=== PATIENT | female | born 1975 | race African-American/Black ===

== ENCOUNTER 2019-07-24 17:59 | Inpatient (IN) | payer OTHER ==
[2019-07-24 19:07] VITALS: BMI 29.8
--- NOTE | 2019-07-24 21:50 | HP ---
COWS - Scale Resting Pulse: 0= [place] 80 or Below Sweatin=Flushed/Facial Moisture Restless Observation: 1= Difficult to Sit Still Pupil Size: 1= Pupils >than Normal Bone or Joint Aches: 2= Severe Diffuse Aches Runny Nose/ Eye Tearin= Runny Nose/Eyes GI Upset > 30mins: 1= Stomach Cramp Tremor Observation: 2= Slight Tremor Visible Yawning Observation: 1= 1-2x During Session Anxiety or Irritability: 1=Feels Anxious/Irritable Goose Flesh Skin: 0=Smooth Skin COWS Score: 13 CIWA Score Nausea/Vomitin Muscle Tremors: 3 Anxiety: 2 Agitation: 2 Paroxysmal Sweats: 2 Orientation: 0-Oriented Tacttile Disturbances: 2-Mild Itch/Numbness/Burn Auditory Disturbances: 2-Mild Harshness/Frighten Visual Disturbances: 2-Mild Sensitivity Headache: 1-Very Mild CIWA-Ar Total Score: 18 - Admission Criteria OASAS Guidelines: Admission for Medically Managed Detox: Requires at least one of the followin. CIWA greater than 12 2. Seizures within the past 24 hours 3. Delirium tremens within the past 24 hours 4. Hallucinations within the past 24 hours 5. Acute intervention needed for co occurring medical disorder 6. Acute intervention needed for co occurring psychiatric disorder 7. Severe withdrawal that cannot be handled at a lower level of care (continued vomiting, continued diarrhea, abnormal vital signs) requiring intravenous medication and/or fluids 8. Admitting History and Physical - Past Medical History ...LMP: 04/24/18 (Unsure of date) - Smoking History Smoking history: Current every day smoker Have you smoked in the past 12 months: Yes Aproximately how many cigarettes per day: 20 - Alcohol/Substance Use Hx Alcohol Use: Yes Admission [facility] Chief Complaint: DEPENDENT ON HEROIN, ETOH, COCAINE AND MARIJUANA OCCASIONALLY Allergies/Adverse Reactions: Allergies Allergy/AdvReac Type Severity Reaction Status Date / Time No Known Allergies Allergy Verified 07/24/19 18:47 History of Present Illness: THE PT. IS REQUESTING ADMISSION TO THE DETOX UNIT AND CAME FOR MEDICAL CLEARANCE Exam Limitations: Physical Impairment - Ebola screening Have you traveled outside of the country in the last 21 days: No (N) Have you had contact with anyone from an Ebola affected area: No Have you been sick,other than usual withdrawal symptoms: No Do you have a fever: No - Review of Systems Constitutional: See HPI, Loss of Appetite, Malaise, Weakness, Unexplained wgt Loss EENT: reports: See HPI Respiratory: reports: See HPI Cardiac: reports: See HPI GI: reports: See HPI, Diarrhea, Nausea, Vomiting, Abdominal cramping : reports: No Symptoms Reported, See HPI Musculoskeletal: reports: See HPI, Joint Pain, Muscle Pain, Muscle Weakness, Joint Stiffness Integumentary: reports: See HPI, Lesions, Sweating Neuro: reports: See HPI, Headache, Tremors, Weakness Endocrine: reports: See HPI Hematology: reports: See HPI, Anemia Psychiatric: reports: Judgement Intact, Orientated x3, Anxious, Depressed Patient History - Patient Medical History Hx Anemia: Yes Hx Asthma: No Hx Chronic Obstructive Pulmonary Disease (COPD): No Hx Cancer: No Hx Cardiac Disorders: No Hx Congestive Heart Failure: No Hx Hypertension: No Hx Hypercholesterolemia: Yes (not on meds) HX Cerebrovascular Accident: No Hx Seizures: No Hx Dementia: No Hx Diabetes: No Hx Gastrointestinal Disorders: No Hx Liver Disease: No Hx Genitourinary Disorders: No Hx Sexually Transmitted Disorders: No Hx Renal Disease (ESRD): No Hx Thyroid Disease: No Hx Human Immunodeficiency Virus (HIV): No (Negative, lasted last year vor two years ago) Hx Hepatitis C: No Hx Suicide Attempt: No (Denies current SI) Hx Bipolar Disorder: Yes (Not on meds at this current time) Hx Schizophrenia: Yes Other Medical History: ARTHRITIS - Patient Surgical History Past Surgical History: Yes Hx Neurologic Surgery: No Hx Cataract Extraction: No Hx Cardiac Surgery: No Hx Lung Surgery: No Hx Breast Surgery: No Hx Breast Biopsy: No Hx Abdominal Surgery: No Hx Appendectomy: No Hx Cholecystectomy: No Hx Genitourinary Surgery: No Hx Section: No Hx Orthopedic Surgery: Yes (EMILY. HIP SURGERIES X 2 ON EACH SIDE) Hx Hysterectomy: No Anesthesia Reaction: No - PPD History Date: 05/12/18 - Reproductive History Patient is a Female of Child Bearing Age (11 -55 yrs old): Yes Last Menstrual Period: 06/13/19 (Unsure of date) Patient : No - Smoking Cessation Smoking history: Current every day smoker Have you smoked in the past 12 months: Yes Aproximately how many cigarettes per day: 20 Hx Chewing Tobacco Use: No Initiated information on smoking cessation: Yes 'Breaking Loose' booklet given: 07/24/19 - Substance & Tx. History Hx Alcohol Use: Yes Hx Substance Use: Yes Substance Use Type: Alcohol, Heroin Hx Substance Use Treatment: Yes - Substances abused Heroin Substance route: Inhalation Frequency: Daily Amount used: 7 bags Age of first use: 29 Date of last use: 07/24/19 Alcohol Substance route: Oral Frequency: Daily Amount used: 6 to 1 pint of vodka Age of first use: 12 Date of last use: 07/24/19 Marijuana/Hashish Substance route: Smoking Frequency: 1-3 times last 30 days Amount used: $10/ONCE A MONTH Age of first use: 16 Date of last use: 07/10/19 Cocaine Substance route: Smoking Frequency: 1-2 times per week Amount used: $20/EACH TIME Age of first use: 27 Date of last use: 07/23/19 Admission Physical Exam S - Vital Signs Vital Signs: Vital Signs - 24 hr 07/24/19 18:45 Temperature 97.7 F Pulse Rate 59 L Respiratory 18 Rate Blood Pressure 131/79 - Physical General Appearance: Yes: No Apparent Distress, Nourished, Appropriately Dressed , Tremorous, Sweating, Anxious HEENTM: Yes: Hearing grossly Normal, Normocephalic, Normal Voice, ARMANDO, Pharynx Normal Respiratory: Yes: Chest Non-Tender, Lungs Clear, Normal Breath Sounds, No Respiratory Distress, No Accessory Muscle Use Neck: Yes: No masses,lesions,Nodules, Supple, Trachea in good position Breast: Yes: Breast Exam Deferred, Axillae without masses Cardiology: Yes: Regular Rhythm, S1, S2, Bradycardia Abdominal: Yes: Normal Bowel Sounds, Non Tender, Soft, Protuberent Back: Yes: Normal Inspection, Decreased Range of Motion Musculoskeletal: Yes: Back pain, Joint Stiffness, Muscle Pain, Muscle weakness Extremities: Yes: Normal Capillary Refill, Non-Tender, Tremors Neurological: Yes: medical staff director II-XII NML intact, Fully Oriented, Alert, Motor Strength 5/5, Normal Response, Depressed Affect Integumentary: Yes: Warm, Moist Lymphatic: Yes: Within Normal Limits - Diagnostic (1) Alcohol dependence with uncomplicated intoxication Current Visit: No Status: Chronic (2) Anxiety Current Visit: No Status: Chronic (3) Arthritis Current Visit: No Status: Chronic (4) Cannabis dependence Current Visit: No Status: Chronic (5) Cocaine dependence Current Visit: No Status: Chronic Qualifiers: Substance use status: uncomplicated Qualified Code(s): F14.20 - Cocaine dependence, uncomplicated (6) Depressed Current Visit: No Status: Chronic Qualifiers: Depression Type: unspecified Qualified Code(s): F32.9 - Major depressive disorder, single episode, unspecified (7) Nicotine dependence Current Visit: No Status: Chronic Qualifiers: Nicotine product type: cigarettes Substance use status: uncomplicated Qualified Code(s): F17.210 - Nicotine dependence, cigarettes, uncomplicated (8) Opioid dependence with uncomplicated intoxication Current Visit: No Status: Chronic (9) Schizoaffective disorder Current Visit: No Status: Chronic (10) Walker as ambulation aid Current Visit: No Status: Chronic Cleared for Admission S - Detox or Rehab [facility] Level of Care: Medically Supervised Detox Regimen/Protocol: Methadone/Librium Inpatient Rehab Admission - Rehab Decision to Admit Inpatient rehab admission?: No
[2019-07-24] MEDS ORDERED: MAGNESIUM HYDROX 2400MG/30ML ORAL SUSPENSION 30 ML CUP PO PRN (22:00)
[2019-07-24] MEDS ORDERED: ACETAMINOPHEN 325 MG TABLET (FP) PO PRN ×2 (22:00)
[2019-07-24] MEDS ORDERED: chlordiazePOXIDE HCL 25 MG CAPSULE PO ONE (22:00)
[2019-07-24] MEDS ORDERED: hydrOXYzine PAMOATE 25 MG CAPSULE (FP) PO PRN (22:00)
[2019-07-24] MEDS ORDERED: cloNIDine HCL 0.1 MG TABLET PO PRN (22:00)
[2019-07-24] MEDS ORDERED: chlordiazePOXIDE HCL 25 MG CAPSULE PO PRN (22:00)
[2019-07-24] MEDS ORDERED: MENTHOL/PHENOL 1 EACH UD MM PRN (22:00)
[2019-07-24] MEDS ORDERED: BISMUTH SUBSALICYLATE 524 MG/30 ML UD PO PRN (22:00)
[2019-07-24] MEDS ORDERED: METHOCARBAMOL 500 MG TABLET PO PRN (22:00)
[2019-07-24] MEDS ORDERED: MAG HYDROX/AL HYDROX/SIMETH 30 ML UNIT-DOSE CUP PO PRN (22:00)
[2019-07-24] MEDS ORDERED: MAGNESIUM CITRATE 300 ML BOTTLE PO PRN (22:00)
[2019-07-24] MEDS ORDERED: PATIENT'S OWN MEDICATION (NON-FORMULARY) (Hydroxyzine Hcl [Hydroxyzine Hcl] 50 MG) PO SCH (22:15)
[2019-07-24] MEDS ORDERED: METHADONE HCL 10 MG TABLET (FOR DETOX USE ONLY) PO ONE (23:16)
[2019-07-24] MEDS: chlordiazePOXIDE HCL 25 MG CAPSULE PO SCH (23:28)
[2019-07-24] MEDS: QUEtiapine FUMARATE 200 MG TABLET PO SCH (23:28)
[2019-07-24] MEDS: TOLNAFTATE 1% CREAM 15 GM TUBE TP SCH (23:36)
[2019-07-24] MEDS: THIAMINE HCL 100 MG TABLET (FP) PO SCH (23:36)
[2019-07-24] MEDS: HYDROCORTISONE 0.5% TOPICAL CREAM 30 GM TUBE TP SCH (23:57)
[2019-07-25] MEDS: chlordiazePOXIDE HCL 25 MG CAPSULE PO SCH ×4 (05:13→22:53)
[2019-07-25] MEDS ORDERED: METHADONE HCL 5 MG TABLET (FOR DETOX USE ONLY) PO ONE (10:00)
[2019-07-25 10:09] LABS: HEMATOCRIT 39.6 % (32.4-45.2); HEMOGLOBIN 13.1 GM/dL (10.7-15.3); MCH 30.3 pg (25.7-33.7); MCHC 33.1 g/dl (32.0-36.0); MEAN CELL VOLUME 91.6 fl (80-96); MEAN PLT VOLUME 8.4 fl (7.5-11.1); PLATELET COUNT 333 K/MM3 (134-434); RBC 4.32 M/mm3 (3.60-5.2); RDW 13.2 % (11.6-15.6); WHITE BLOOD COUNT 6.2 K/mm3 (4.0-10.0)
[2019-07-25 10:15] LABS: ALBUMIN 3.5 g/dl (3.4-5.0); BILIRUBIN,TOTAL 0.3 mg/dL (0.2-1); BLOOD UREA NITROGEN 14.6 mg/dL (7-18); CALCIUM 9.1 mg/dL (8.5-10.1); CREATININE 0.7 mg/dL (0.55-1.3); POTASSIUM 3.7 mmol/L (3.5-5.1); TOT PROT 6.6 g/dl (6.4-8.2)
[2019-07-25] MEDS: risperiDONE 1 MG TABLET (FP) PO SCH ×3 (10:57→22:49)
[2019-07-25] MEDS: QUEtiapine FUMARATE 200 MG TABLET PO SCH ×2 (10:57→22:49)
[2019-07-25] MEDS: PRENATAL VITAMINS W/ FOLIC ACID TABLET (FP) PO SCH (10:58)
[2019-07-25] MEDS: NICOTINE 21 MG/24 HOURS TOPICAL PATCH TD SCH (10:58)
[2019-07-25] MEDS: HYDROCORTISONE 0.5% TOPICAL CREAM 30 GM TUBE TP SCH ×2 (10:58→22:54)
[2019-07-25] MEDS: TOLNAFTATE 1% CREAM 15 GM TUBE TP SCH ×2 (10:59→22:53)
--- NOTE | 2019-07-25 16:33 | PN ---
[facility] CIWA - CIWA Score Nausea/Vomitin-Mild Nausea/No Vomiting Muscle Tremors: 4-Moderate,w/Arms Extend Anxiety: 4-Mod. Anxious/Guarded Agitation: 3 Paroxysmal Sweats: 3 Orientation: 0-Oriented Tacttile Disturbances: 0-None Auditory Disturbances: 0-None Visual Disturbances: 0-None Headache: 0-None Present CIWA-Ar Total Score: 15 S COWS - Scale Resting Pulse: 0= [place] 80 or Below Sweatin= Chills/Flushing Restless Observation: 3= Extraneous Movement Pupil Size: 0= Normal to Room Light Bone or Joint Aches: 2= Severe Diffuse Aches Runny Nose/ Eye Tearin= Runny Nose/Eyes GI Upset > 30mins: 2= Nausea/Diarrhea Tremor Observation of Outstretched Hands: 2= Slight Tremor Visible Yawning Observation: 1= 1-2x During Session Anxiety or Irritability: 1=Feels Anxious/Irritable Goose Flesh Skin: 0=Smooth Skin COWS Score: 14 S Progress Note (SOAP) Subjective: Chills, tremor, diarrhea, yawning, teary eyes, interrupted sleep. Patient stated she takes gabapentin 800 TID for pain at home and would like to resume it. Objective: 07/25/19 16:32 Last Vital Signs Temp Pulse Resp BP Pulse Ox 96.4 F L 74 16 114/56 L 07/25/19 14:00 07/25/19 14:00 07/25/19 14:00 07/25/19 14:00 Laboratory Tests 07/25/19 07/25/19 07/25/19 07:40 07:40 07:40 WBC 6.2 RBC 4.32 Hgb 13.1 Hct 39.6 MCV 91.6 MCH 30.3 MCHC 33.1 RDW 13.2 Plt Count 333 MPV 8.4 Sodium 144 Potassium 3.7 Chloride 110 H Carbon Dioxide 29 Anion Gap 6 L BUN 14.6 Creatinine 0.7 Est GFR (CKD-EPI)AfAm 121.27 Est GFR (CKD-EPI)NonAf 104.64 Random Glucose 107 H Calcium 9.1 Total Bilirubin 0.3 AST 13 L ALT 23 Alkaline Phosphatase 82 Total Protein 6.6 Albumin 3.5 RPR Titer Nonreactive Labs reviewed Assessment: 07/25/19 16:32 Withdrawal sxs Plan: Continue detox Encouraged PO water intake Gabapentin 800mg TID (home med) resumed as per patient's request for chronic pain
[2019-07-25] MEDS: IBUPROFEN 400 MG TABLET (FP) PO PRN (18:01)
[2019-07-25] MEDS: GABAPENTIN 400 MG CAPSULE (FP) PO SCH ×2 (19:39→22:49)
[2019-07-25] MEDS: THIAMINE HCL 100 MG TABLET (FP) PO SCH (22:53)
[2019-07-26] MEDS: GABAPENTIN 400 MG CAPSULE (FP) PO SCH ×3 (07:22→22:26)
[2019-07-26] MEDS: chlordiazePOXIDE HCL 25 MG CAPSULE PO SCH ×4 (07:22→22:27)
[2019-07-26] MEDS ORDERED: METHADONE HCL 10 MG TABLET (FOR DETOX USE ONLY) PO ONE (10:00)
[2019-07-26] MEDS: HYDROCORTISONE 0.5% TOPICAL CREAM 30 GM TUBE TP SCH ×2 (11:25→22:26)
[2019-07-26] MEDS: NICOTINE 21 MG/24 HOURS TOPICAL PATCH TD SCH (11:26)
[2019-07-26] MEDS: PRENATAL VITAMINS W/ FOLIC ACID TABLET (FP) PO SCH (11:26)
[2019-07-26] MEDS: risperiDONE 1 MG TABLET (FP) PO SCH ×3 (11:26→22:29)
[2019-07-26] MEDS: QUEtiapine FUMARATE 200 MG TABLET PO SCH ×2 (11:27→22:27)
[2019-07-26] MEDS: TOLNAFTATE 1% CREAM 15 GM TUBE TP SCH ×2 (11:27→22:29)
[2019-07-26] MEDS ORDERED: LOPERAMIDE HCL 2 MG CAPSULE PO PRN (12:39)
--- NOTE | 2019-07-26 13:01 | PN ---
S CIWA - CIWA Score Nausea/Vomitin Muscle Tremors: None Anxiety: 3 Agitation: 0-Normal Activity Paroxysmal Sweats: No Perspiration Orientation: 0-Oriented Tacttile Disturbances: 0-None Auditory Disturbances: 0-None Visual Disturbances: 0-None Headache: 0-None Present CIWA-Ar Total Score: 6 S COWS - Scale Resting Pulse: 1= [place] 81-100 Sweatin= No chills or Flushing Restless Observation: 0= Sits Still Pupil Size: 2= Moderately Dilated Bone or Joint Aches: 0= None Runny Nose/ Eye Tearin= None GI Upset > 30mins: 2= Nausea/Diarrhea Tremor Observation of Outstretched Hands: 0= None Yawning Observation: 0= None Anxiety or Irritability: 2=Irritable/Anxious Goose Flesh Skin: 0=Smooth Skin COWS Score: 7 S Progress Note (SOAP) Subjective: PATIENT ADMITTED FOR ETOH/OPIOD WITHDRAWAL SX. ROS: C/O FEELING TIRED, ANXIOUS, +NAUSEA AND DIARRHEA Objective: 07/26/19 12:59 Vital Signs Temperature 97 F L 07/26/19 09:33 Pulse Rate 88 07/26/19 09:33 Respiratory Rate 16 07/26/19 09:33 Blood Pressure 152/81 07/26/19 09:33 O2 Sat by Pulse Oximetry (%) Laboratory Tests 07/24/19 07/25/19 07/25/19 21:50 07:40 07:40 WBC 6.2 RBC 4.32 Hgb 13.1 Hct 39.6 MCV 91.6 MCH 30.3 MCHC 33.1 RDW 13.2 Plt Count 333 MPV 8.4 Sodium 144 Potassium 3.7 Chloride 110 H Carbon Dioxide 29 Anion Gap 6 L BUN 14.6 Creatinine 0.7 Est GFR (CKD-EPI)AfAm 121.27 Est GFR (CKD-EPI)NonAf 104.64 Random Glucose 107 H Calcium 9.1 Total Bilirubin 0.3 AST 13 L ALT 23 Alkaline Phosphatase 82 Total Protein 6.6 Albumin 3.5 POC Urine HCG, Qual Negative RPR Titer HIV 1&2 Antibody Screen HIV P24 Antigen 07/25/19 07/26/19 07:40 08:20 WBC RBC Hgb Hct MCV MCH MCHC RDW Plt Count MPV Sodium Potassium Chloride Carbon Dioxide Anion Gap BUN Creatinine Est GFR (CKD-EPI)AfAm Est GFR (CKD-EPI)NonAf Random Glucose Calcium Total Bilirubin AST ALT Alkaline Phosphatase Total Protein Albumin POC Urine HCG, Qual RPR Titer Nonreactive HIV 1&2 Antibody Screen Negative HIV P24 Antigen Negative PE: ALERT AND ORIENTED X 3 SKIN WARM AND DRY PUPILS DILATED 3MM, SCLERA WITH MILD REDNESS-HAS ON CONTACTS-PATIENT REFUSED TO TAKE THEM OFF, DENIES ITCHING AND DISCHARGE CAR S1S2, RRR-NO MURMURS RESP CTA BL NO WHEEZES/RALES EXT NO VISIBLE EDEMA OR TREMORS AMB WITH WALKER Assessment: 07/26/19 13:01 OPIOD/ETOH WITHDRAWAL SX Plan: CONTINUE DETOX ENCOURAGE FLUIDS D/C PEPTO BISMUL PATIENT STATES NOT HELPING DIARRHEA ADD IMMODIUM PRN MONITOR
--- NOTE | 2019-07-26 13:04 | CONSULT ---
[facility] Psychiatric Consult - Data Date of interview: 07/26/19 Admission source: Self-referred Identifying data: Ms Payne is a 44 years old Black female seeking detox treatment for alcohol, opioid, cocaine and cannabis Substance Abuse History: Reports history of alcohol, heroin, cocaine and marijuana use. Refer to addiction counslor's summary for further information Medical History: Significant for dyslipidemia, arthritis of both knees and chronic pain in right hip, history of anemia and orthosurgery . Smokes cigarettes 1 ppd Psychiatric History: Several attempts made to see patient today were unsuccessful. She is very sedated and goes to sleep while talking to you. Re consult when patient is more appropriate for interview Psychiatric Findings - Problem List ([place] 1, 2,3) (1) Schizoaffective disorder Current Visit: No Status: Chronic (2) Post traumatic stress disorder (PTSD) Current Visit: No Status: Chronic Comment: Strongly suspected.
[2019-07-26] MEDS: THIAMINE HCL 100 MG TABLET (FP) PO SCH (22:27)
[2019-07-26] MEDS: MELATONIN 5 MG TABLETS PO PRN (22:27)
[2019-07-27] MEDS ORDERED: chlordiazePOXIDE HCL 10 MG CAPSULE PO PRN
[2019-07-27] MEDS ORDERED: METHADONE HCL 5 MG TABLET (FOR DETOX USE ONLY) PO ONE (06:00)
[2019-07-27] MEDS: chlordiazePOXIDE HCL 10 MG CAPSULE PO SCH ×2 (06:23→10:59)
[2019-07-27] MEDS: GABAPENTIN 400 MG CAPSULE (FP) PO SCH ×2 (06:25→15:26)
[2019-07-27] MEDS: HYDROCORTISONE 0.5% TOPICAL CREAM 30 GM TUBE TP SCH (10:58)
[2019-07-27] MEDS: NICOTINE POLACRILEX 4 MG GUM BUC PRN (10:59)
[2019-07-27] MEDS: NICOTINE 21 MG/24 HOURS TOPICAL PATCH TD SCH (10:59)
[2019-07-27] MEDS: PRENATAL VITAMINS W/ FOLIC ACID TABLET (FP) PO SCH (10:59)
[2019-07-27] MEDS: risperiDONE 1 MG TABLET (FP) PO SCH ×2 (10:59→15:26)
[2019-07-27] MEDS: TOLNAFTATE 1% CREAM 15 GM TUBE TP SCH ×2 (10:59→22:34)
[2019-07-27] MEDS: QUEtiapine FUMARATE 200 MG TABLET PO SCH (10:59)
--- NOTE | 2019-07-27 12:17 | PN ---
S CIWA - CIWA Score Nausea/Vomitin-No Nausea/No Vomiting Muscle Tremors: 2 Anxiety: 1-Mildly Anxious Agitation: 1-Slight > Activity Paroxysmal Sweats: 1-Minimal Palms Moist Orientation: 0-Oriented Tacttile Disturbances: 0-None Auditory Disturbances: 0-None Visual Disturbances: 0-None Headache: 0-None Present CIWA-Ar Total Score: 5 [facility] COWS - Scale Resting Pulse: 1= [place] 81-100 Sweatin= No chills or Flushing Restless Observation: 1= Difficult to Sit Still Pupil Size: 0= Normal to Room Light Bone or Joint Aches: 1= Mild Discomfort Runny Nose/ Eye Tearin= None GI Upset > 30mins: 0= None Tremor Observation of Outstretched Hands: 0= None Yawning Observation: 1= 1-2x During Session Anxiety or Irritability: 1=Feels Anxious/Irritable Goose Flesh Skin: 0=Smooth Skin COWS Score: 5 S Progress Note (SOAP) Subjective: sleepy tired interrupted sleep body aches sweats Objective: 07/27/19 12:04 Vital Signs Temperature 98.0 F 07/27/19 09:50 Pulse Rate 84 07/27/19 09:50 Respiratory Rate 18 07/27/19 09:50 Blood Pressure 106/64 07/27/19 09:50 O2 Sat by Pulse Oximetry (%) Laboratory Tests 07/24/19 07/25/19 07/25/19 21:50 07:40 07:40 WBC 6.2 RBC 4.32 Hgb 13.1 Hct 39.6 MCV 91.6 MCH 30.3 MCHC 33.1 RDW 13.2 Plt Count 333 MPV 8.4 Sodium 144 Potassium 3.7 Chloride 110 H Carbon Dioxide 29 Anion Gap 6 L BUN 14.6 Creatinine 0.7 Est GFR (CKD-EPI)AfAm 121.27 Est GFR (CKD-EPI)NonAf 104.64 Random Glucose 107 H Calcium 9.1 Total Bilirubin 0.3 AST 13 L ALT 23 Alkaline Phosphatase 82 Total Protein 6.6 Albumin 3.5 POC Urine HCG, Qual Negative RPR Titer HIV 1&2 Antibody Screen HIV P24 Antigen 07/25/19 07/26/19 07:40 08:20 WBC RBC Hgb Hct MCV MCH MCHC RDW Plt Count MPV Sodium Potassium Chloride Carbon Dioxide Anion Gap BUN Creatinine Est GFR (CKD-EPI)AfAm Est GFR (CKD-EPI)NonAf Random Glucose Calcium Total Bilirubin AST ALT Alkaline Phosphatase Total Protein Albumin POC Urine HCG, Qual RPR Titer Nonreactive HIV 1&2 Antibody Screen Negative HIV P24 Antigen Negative labs noted aaox3 ambulating no acute distress Assessment: 07/27/19 12:17 withdrawals Plan: continue detox increase fluids
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
[2019-07-27] MEDS ORDERED: chlordiazePOXIDE HCL 10 MG CAPSULE PO SCH (22:00)
[2019-07-27] MEDS: MELATONIN 5 MG TABLETS PO PRN (22:33)
[2019-07-27] MEDS: THIAMINE HCL 100 MG TABLET (FP) PO SCH (22:34)
[2019-07-28] MEDS: HYDROCORTISONE 0.5% TOPICAL CREAM 30 GM TUBE TP SCH ×3 (00:14→22:37)
[2019-07-28] MEDS: chlordiazePOXIDE HCL 10 MG CAPSULE PO SCH ×2 (04:39→17:58)
[2019-07-28] MEDS: NICOTINE POLACRILEX 4 MG GUM BUC PRN (05:23)
[2019-07-28] MEDS ORDERED: QUEtiapine FUMARATE 100 MG TABLET (FP) PO SCH (10:00)
--- NOTE | 2019-07-28 10:18 | PN ---
[facility] CIWA - CIWA Score Nausea/Vomitin-No Nausea/No Vomiting Muscle Tremors: 1-None Visible, but [place] Anxiety: 1-Mildly Anxious Agitation: 0-Normal Activity Paroxysmal Sweats: 1-Minimal Palms Moist Orientation: 0-Oriented Tacttile Disturbances: 0-None Auditory Disturbances: 0-None Visual Disturbances: 0-None Headache: 0-None Present CIWA-Ar Total Score: 3 S COWS - Scale Resting Pulse: 1= [place] 81-100 Sweatin= No chills or Flushing Restless Observation: 1= Difficult to Sit Still Pupil Size: 0= Normal to Room Light Bone or Joint Aches: 1= Mild Discomfort Runny Nose/ Eye Tearin= None GI Upset > 30mins: 0= None Tremor Observation of Outstretched Hands: 0= None Yawning Observation: 0= None Anxiety or Irritability: 1=Feels Anxious/Irritable Goose Flesh Skin: 0=Smooth Skin COWS Score: 4 [facility] Progress Note (SOAP) Subjective: sweats anxiety I need my psych medication Objective: 07/28/19 10:17 Vital Signs Temperature 98.1 F 07/28/19 09:30 Pulse Rate 90 07/28/19 09:30 Respiratory Rate 18 07/28/19 09:30 Blood Pressure 134/75 07/28/19 09:30 O2 Sat by Pulse Oximetry (%) aaox3 ambulating no acute distress Assessment: 07/28/19 10:18 mild withdrawals Plan: continue detox psych consultation ordered d/c in am
[2019-07-28] MEDS: NICOTINE 21 MG/24 HOURS TOPICAL PATCH TD SCH (10:37)
[2019-07-28] MEDS: TOLNAFTATE 1% CREAM 15 GM TUBE TP SCH ×2 (10:37→22:36)
[2019-07-28] MEDS: PRENATAL VITAMINS W/ FOLIC ACID TABLET (FP) PO SCH (10:37)
[2019-07-28] MEDS: IBUPROFEN 400 MG TABLET (FP) PO PRN (11:02)
--- NOTE | 2019-07-28 14:10 | PN ---
[facility] Progress Note Note: Patient is much better today after discontinuation of medications(Seroquel 200 mg/bid, Risperdal 3 mg/hs). She is more alert and able to carry a conversation without nodding. She insists on getting medications(Risperdal 3 mg/hs, Seroquel 200 mg/bid) reordered. [facility] [place] [address] [place] [address] was called . According to pharmacist Script for Risperdal 2 mg/bid, Zoloft 100 mg/day were filled in December 2018 and Gabapentin 800 mg/bid filled on 06/12/19. No Script for Seroquel has ever filled. When presented with that information, she said that she got Seroquel 200 mg/bid a few weeks ago at [facility] where she went for refills. That information is very dubious on 2 counts: 1) In ED, patient will never be given refill for medication she is not currentlly on. 2) No provider would initiate treatment with Seroquel at that high dose(200 mg/bid). For lack of verification, Seroquel will not be ordered, only Risperdal 3 mg/hs will. Patient does not want to resume Zoloft. Reordering of Gabapentin 800 mg/bid which she takes for both pain and anxiety is left at the discretion of medical provider
[2019-07-28] MEDS: GABAPENTIN 100 MG CAPSULE (FP) PO SCH ×2 (15:05→22:36)
[2019-07-28] MEDS ORDERED: risperiDONE 3 MG TABLET PO SCH (22:00)
[2019-07-28] MEDS: THIAMINE HCL 100 MG TABLET (FP) PO SCH (22:36)
[2019-07-28] MEDS: MELATONIN 5 MG TABLETS PO PRN (22:38)
--- NOTE | 2019-07-29 04:44 | PN ---
[facility] Progress Note Note: Alert and oriented. Vomiting Diarrhea - explosive, brown Abd S/NT/Hyperactive bowel sounds. Pupils = 3 mm Mild tremors of outstretched hands. Lungs CTA. Increased facial moisture Vital Signs 07/28/19 07/29/19 07/29/19 21:09 00:30 04:50 Temperature 98.1 F 98.8 F Pulse Rate 87 99 H Respiratory 18 18 18 Rate Blood Pressure 126/83 131/79 Dx: Protracted withdrawal symptoms. Plan: Extend hospitalization x 1 day Tigan 200 mg IM Imodium w/ repeat 2 hrs after 1st dose Once dose Methadone 5 mg PO Extend Librium dosing Encourage increased fluids (warm tea and water).
[2019-07-29] MEDS ORDERED: TRIMETHOBENZAMIDE HCL 200MG/2ML INJ IM ONE (04:45)
[2019-07-29 04:51] VITALS: BP 131/79; PULSE 99; TEMP 98.8
[2019-07-29] MEDS ORDERED: chlordiazePOXIDE HCL 10 MG CAPSULE PO ONE (05:00)
[2019-07-29] MEDS: LOPERAMIDE HCL 2 MG CAPSULE PO SCH ×2 (05:41→07:51)
[2019-07-29] MEDS: GABAPENTIN 100 MG CAPSULE (FP) PO SCH (05:41)
[2019-07-29] MEDS ORDERED: METHADONE HCL 5 MG TABLET PO ONE (06:00)
--- NOTE | 2019-07-29 09:16 | DS ---
[facility] Detox Discharge Summary Admission Date: 07/24/19 Discharge Date: 07/29/19 - History Present History: Alcohol Dependence, Cannabis Dependence, Cocaine Dependence, Opioid Dependence - Physical Exam Results Vital Signs: Vital Signs Temperature 98.8 F 07/29/19 07:36 Pulse Rate 99 H 07/29/19 07:36 Respiratory Rate 18 07/29/19 07:36 Blood Pressure 131/79 07/29/19 07:36 O2 Sat by Pulse Oximetry (%) Pertinent Admission Physical Exam Findings: pt arrived in withdrawals Vital Signs Temperature 98.8 F 07/29/19 07:36 Pulse Rate 99 H 07/29/19 07:36 Respiratory Rate 18 07/29/19 07:36 Blood Pressure 131/79 07/29/19 07:36 O2 Sat by Pulse Oximetry (%) Laboratory Tests 07/24/19 07/25/19 07/25/19 21:50 07:40 07:40 WBC 6.2 RBC 4.32 Hgb 13.1 Hct 39.6 MCV 91.6 MCH 30.3 MCHC 33.1 RDW 13.2 Plt Count 333 MPV 8.4 Sodium 144 Potassium 3.7 Chloride 110 H Carbon Dioxide 29 Anion Gap 6 L BUN 14.6 Creatinine 0.7 Est GFR (CKD-EPI)AfAm 121.27 Est GFR (CKD-EPI)NonAf 104.64 Random Glucose 107 H Calcium 9.1 Total Bilirubin 0.3 AST 13 L ALT 23 Alkaline Phosphatase 82 Total Protein 6.6 Albumin 3.5 POC Urine HCG, Qual Negative RPR Titer HIV 1&2 Antibody Screen HIV P24 Antigen 07/25/19 07/26/19 07:40 08:20 WBC RBC Hgb Hct MCV MCH MCHC RDW Plt Count MPV Sodium Potassium Chloride Carbon Dioxide Anion Gap BUN Creatinine Est GFR (CKD-EPI)AfAm Est GFR (CKD-EPI)NonAf Random Glucose Calcium Total Bilirubin AST ALT Alkaline Phosphatase Total Protein Albumin POC Urine HCG, Qual RPR Titer Nonreactive HIV 1&2 Antibody Screen Negative HIV P24 Antigen Negative today pt is aaox3 ambulating no acute distress no s/s of withdrawals - Treatment Hospital Course: Detox Protocol Followed, Detoxed Safely, Responded well, Discharged Condition Good, Rehab Referral Accepted Patient has Accepted a Rehab Referral to: pt referred to [facility] - Medication Discharge Medications: Ambulatory Orders Meloxicam 15 mg PO PRN 05/10/18 Risperidone 3 mg PO HS 05/10/18 Sertraline HCl [Zoloft -] 50 mg PO DAILY #30 tablet 05/14/18 - Diagnosis (1) Substance-induced sleep disorder Current Visit: Yes Status: Acute (2) Uncomplicated opioid dependence Current Visit: Yes Status: Chronic (3) Alcohol dependence with uncomplicated intoxication Current Visit: Yes Status: Chronic (4) Cannabis dependence Current Visit: Yes Status: Chronic (5) Cocaine dependence Current Visit: Yes Status: Chronic Qualifiers: Substance use status: uncomplicated Qualified Code(s): F14.20 - Cocaine dependence, uncomplicated (6) Insomnia Current Visit: No Status: Acute (7) Substance induced mood disorder Current Visit: No Status: Acute (8) Anxiety Current Visit: No Status: Chronic (9) Arthritis Current Visit: Yes Status: Chronic (10) Nicotine dependence Current Visit: Yes Status: Chronic Qualifiers: Nicotine product type: cigarettes Substance use status: uncomplicated Qualified Code(s): F17.210 - Nicotine dependence, cigarettes, uncomplicated (11) Non compliance w medication regimen Current Visit: Yes Status: Chronic (12) Post traumatic stress disorder (PTSD) Current Visit: No Status: Chronic (13) Schizoaffective disorder Current Visit: No Status: Chronic (14) Walker as ambulation aid Current Visit: Yes Status: Chronic
[2019-07-29] MEDS ORDERED: chlordiazePOXIDE HCL 10 MG CAPSULE PO PRN (10:00)
[2019-07-29] MEDS: PRENATAL VITAMINS W/ FOLIC ACID TABLET (FP) PO SCH (10:17)
[2019-07-29] MEDS: HYDROCORTISONE 0.5% TOPICAL CREAM 30 GM TUBE TP SCH (10:19)
[2019-07-29] MEDS: NICOTINE 21 MG/24 HOURS TOPICAL PATCH TD SCH (10:19)
[2019-07-29] MEDS: TOLNAFTATE 1% CREAM 15 GM TUBE TP SCH (10:20)
[2019-07-29] MEDS: risperiDONE 1 MG TABLET (FP) PO SCH (10:22)
== END 2019-07-29 11:28 | disposition home or self-care (01) | DRG 773 ==
LOC: YASAS 17:59 → Y6N 22:39
PROVIDERS: ADMIT Allergy & Immunology; ATTEND Allergy & Immunology
PROC: HZ2ZZZZ Detoxification Services for Substance Abuse Treatment (ICD-10-PCS; principal; 2019-07-24)
DX: F10.230 Alcohol dependence with withdrawal, uncomplicated (principal); F10.220 Alcohol dependence with intoxication, uncomplicated; F11.23 Opioid dependence with withdrawal; F14.20 Cocaine dependence, uncomplicated; F12.20 Cannabis dependence, uncomplicated; F17.210 Nicotine dependence, cigarettes, uncomplicated; F25.9 Schizoaffective disorder, unspecified; F19.282 Other psychoactive substance dependence with psychoactive substance-induced sleep disorder; F19.24 Other psychoactive substance dependence with psychoactive substance-induced mood disorder; F43.10 Post-traumatic stress disorder, unspecified; F32.9 Major depressive disorder, single episode, unspecified; M12.9 Arthropathy, unspecified; E78.5 Hyperlipidemia, unspecified; D64.9 Anemia, unspecified; Z99.89 Dependence on other enabling machines and devices; Z91.14 Patient's other noncompliance with medication regimen
CPT/HCPCS: 36415; 80053; 81025; 85027; 86593; 87389; J2794

== ENCOUNTER 2019-07-29 11:23 | Inpatient (IN) | payer OTHER ==
--- NOTE | 2019-07-29 10:46 | HP ---
[facility] Rehab Assess/Revision - Admission History [facility] - Findings Detox History & Physical reviewed: Yes Concur with findings: Yes Inpatient Rehab Admission - Rehab Decision to Admit Inpatient rehab admission?: Yes - Initial Determination Are CD services needed?: Yes Free of communicable disease: Yes Not in need of hospitalization: Yes - Rehab Admission Criteria Previous failed treatment: Yes Poor recovery environment: Yes Comorbidities: Yes Lacks judgement: Yes Patient is meeting Inpatient Rehab admission criteria:: Yes
[~2019-07-29 11:23] MED LIST: ACETAMINOPHEN 325 MG TABLET (FP) PO PRN; IBUPROFEN 400 MG TABLET (FP) PO PRN; MAG HYDROX/AL HYDROX/SIMETH 30 ML UNIT-DOSE CUP PO PRN; MAGNESIUM CITRATE 300 ML BOTTLE PO PRN; MAGNESIUM HYDROX 2400MG/30ML ORAL SUSPENSION 30 ML CUP PO PRN; MENTHOL/PHENOL 1 EACH UD MM PRN; NICOTINE POLACRILEX 4 MG GUM BUC PRN; P-EPHED 60MG/TRIPROLIDI 2.5MG TABLET PO PRN; guaiFENesin 200 MG/10 ML 10 ML UNIT-DOSE CUPS PO PRN; hydrOXYzine PAMOATE 50 MG CAPSULE (FP) PO PRN
[2019-07-29] MEDS: GABAPENTIN 400 MG CAPSULE (FP) PO SCH ×2 (14:11→21:36)
[2019-07-29] MEDS: CYCLOBENZAPRINE HCL 10 MG TABLET (FP) PO PRN (18:05)
[2019-07-29] MEDS ORDERED: PT OWN MED DRAWER 7, Y5N ONE (18:38)
[2019-07-29] MEDS: NAPROXEN 500 MG TABLET (FP) PO SCH (21:36)
[2019-07-29] MEDS: risperiDONE 3 MG TABLET PO SCH (21:37)
[2019-07-29] MEDS: THIAMINE HCL 100 MG TABLET (FP) PO SCH (21:37)
[2019-07-29] MEDS: MELATONIN 5 MG TABLETS PO PRN (21:49)
[2019-07-30] MEDS: CYCLOBENZAPRINE HCL 10 MG TABLET (FP) PO PRN (05:55)
[2019-07-30] MEDS: GABAPENTIN 400 MG CAPSULE (FP) PO SCH ×3 (06:21→22:25)
[2019-07-30] MEDS: NAPROXEN 500 MG TABLET (FP) PO SCH ×2 (10:48→22:26)
[2019-07-30] MEDS: NICOTINE 21 MG/24 HOURS TOPICAL PATCH TD SCH (10:48)
[2019-07-30] MEDS: PRENATAL VITAMINS W/ FOLIC ACID TABLET (FP) PO SCH (10:48)
[2019-07-30] MEDS: TOLNAFTATE 1% CREAM 15 GM TUBE TP SCH ×2 (10:50→22:31)
[2019-07-30] MEDS: HYDROCORTISONE 1% TOPICAL CREAM 30 GM TUBE TP SCH ×2 (10:50→22:29)
[2019-07-30] MEDS ORDERED: PT OWN MED DRAWER 7, Y5N ONE ×3 (10:51→22:54)
--- NOTE | 2019-07-30 12:05 | PN ---
[facility] Progress Note Note: Pt states she is usually on higher dose of Risperdal 4mg/day, currently on 3mg/ day. h/o hearing voices prior to coming here> consult placed
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
[2019-07-30] MEDS: risperiDONE 1 MG TABLET (FP) PO SCH (15:21)
[2019-07-30] MEDS ORDERED: BUPRENORPHINE/NALOXONE 2 MG/0.5 MG FILM PACKET SL ONE (15:26)
--- NOTE | 2019-07-30 15:32 | PN ---
[facility] COWS - Scale Resting Pulse: 1= CT 81-100 Sweatin= Chills/Flushing Restless Observation: 3= Extraneous Movement Pupil Size: 0= Normal to Room Light Bone or Joint Aches: 4=Acute Joint/Muscle Pain Runny Nose/ Eye Tearin= Runny Nose/Eyes GI Upset > 30mins: 1= Stomach Cramp Tremor Observation of Outstretched Hands: 1= Tremor [place], Not Seen Yawning Observation: 0= None Anxiety or Irritability: 1=Feels Anxious/Irritable Goose Flesh Skin: 0=Smooth Skin COWS Score: 14 [facility] Progress Note (SOAP) Subjective: Pt is post detox from [address] [place] [id number] and requesting suboxone MAT. Pt reports she has taken nonRx suboxone in the past and has been on methadone tx. Pt also c/o anxiety,hot/cold chills and body aches. Objective: 07/30/19 15:31 Vital Signs - 24 hr 07/30/19 07/30/19 07/30/19 00:30 03:30 07:26 Temperature 97.5 F L Pulse Rate 87 Respiratory 17 17 18 Rate Blood Pressure 110/72 cows = 14 Assessment: 07/30/19 15:31 opioid use disorder s/p opioid detox Plan: D/w pt will start Suboxone 2 mg/0.5 mg sl daily x 3- 4 days and re-evaluate for dose adjustment on Friday. Pt met with her counselor and has been set up for CD aftercare/ Suboxone MAT at [facility], [place], [place] for follow up after rehab.
[2019-07-30] MEDS: THIAMINE HCL 100 MG TABLET (FP) PO SCH (22:26)
[2019-07-30] MEDS: MELATONIN 5 MG TABLETS PO PRN (22:26)
[2019-07-30] MEDS: QUEtiapine FUMARATE 100 MG TABLET (FP) PO SCH (22:26)
[2019-07-30] MEDS: risperiDONE 3 MG TABLET PO SCH (22:29)
[2019-07-31] MEDS: GABAPENTIN 400 MG CAPSULE (FP) PO SCH ×3 (07:50→21:32)
[2019-07-31] MEDS: NAPROXEN 500 MG TABLET (FP) PO SCH ×2 (09:04→21:33)
[2019-07-31] MEDS: PRENATAL VITAMINS W/ FOLIC ACID TABLET (FP) PO SCH (09:05)
[2019-07-31] MEDS: risperiDONE 1 MG TABLET (FP) PO SCH (09:05)
[2019-07-31] MEDS: NICOTINE 21 MG/24 HOURS TOPICAL PATCH TD SCH (09:05)
[2019-07-31] MEDS: CYCLOBENZAPRINE HCL 10 MG TABLET (FP) PO PRN ×2 (09:08→21:35)
[2019-07-31] MEDS: BUPRENORPHINE/NALOXONE 2 MG/0.5 MG FILM PACKET SL SCH (09:08)
[2019-07-31] MEDS: HYDROCORTISONE 1% TOPICAL CREAM 30 GM TUBE TP SCH ×2 (10:06→21:33)
[2019-07-31] MEDS: TOLNAFTATE 1% CREAM 15 GM TUBE TP SCH ×2 (10:06→21:45)
[2019-07-31] MEDS ORDERED: PT OWN MED DRAWER 7, Y5N ONE (19:32)
[2019-07-31] MEDS: THIAMINE HCL 100 MG TABLET (FP) PO SCH (21:33)
[2019-07-31] MEDS: MELATONIN 5 MG TABLETS PO PRN (21:33)
[2019-07-31] MEDS: QUEtiapine FUMARATE 100 MG TABLET (FP) PO SCH (21:33)
[2019-07-31] MEDS: risperiDONE 3 MG TABLET PO SCH (21:33)
[2019-08-01] MEDS: GABAPENTIN 400 MG CAPSULE (FP) PO SCH ×3 (06:29→21:21)
[2019-08-01] MEDS ORDERED: PT OWN MED DRAWER 7, Y5N ONE ×2 (08:32→20:21)
[2019-08-01] MEDS: NICOTINE 21 MG/24 HOURS TOPICAL PATCH TD SCH (09:11)
[2019-08-01] MEDS: risperiDONE 1 MG TABLET (FP) PO SCH (09:12)
[2019-08-01] MEDS: TOLNAFTATE 1% CREAM 15 GM TUBE TP SCH ×2 (09:12→21:31)
[2019-08-01] MEDS: PRENATAL VITAMINS W/ FOLIC ACID TABLET (FP) PO SCH (09:12)
[2019-08-01] MEDS: NAPROXEN 500 MG TABLET (FP) PO SCH ×2 (09:12→21:21)
[2019-08-01] MEDS: HYDROCORTISONE 1% TOPICAL CREAM 30 GM TUBE TP SCH ×2 (09:12→21:30)
[2019-08-01] MEDS: BUPRENORPHINE/NALOXONE 2 MG/0.5 MG FILM PACKET SL SCH (09:14)
[2019-08-01] MEDS: MELATONIN 5 MG TABLETS PO PRN (21:21)
[2019-08-01] MEDS: THIAMINE HCL 100 MG TABLET (FP) PO SCH (21:21)
[2019-08-01] MEDS: QUEtiapine FUMARATE 100 MG TABLET (FP) PO SCH (21:21)
[2019-08-01] MEDS: risperiDONE 3 MG TABLET PO SCH (21:21)
[2019-08-01] MEDS: CYCLOBENZAPRINE HCL 10 MG TABLET (FP) PO PRN (21:22)
[2019-08-02] MEDS: GABAPENTIN 400 MG CAPSULE (FP) PO SCH ×3 (06:59→21:39)
[2019-08-02] MEDS: LOPERAMIDE HCL 2 MG CAPSULE PO PRN (07:01)
[2019-08-02 07:18] VITALS: PULSE 99
[2019-08-02] MEDS ORDERED: COLLOIDAL OATMEAL 1 BAR EACH TP PRN (08:40)
[2019-08-02] MEDS: BUPRENORPHINE/NALOXONE 2 MG/0.5 MG FILM PACKET SL SCH (10:22)
[2019-08-02] MEDS: NICOTINE 21 MG/24 HOURS TOPICAL PATCH TD SCH (10:22)
[2019-08-02] MEDS: NAPROXEN 500 MG TABLET (FP) PO SCH ×2 (10:23→21:39)
[2019-08-02] MEDS: risperiDONE 1 MG TABLET (FP) PO SCH (10:23)
[2019-08-02] MEDS: HYDROCORTISONE 1% TOPICAL CREAM 30 GM TUBE TP SCH ×2 (10:23→21:40)
[2019-08-02] MEDS: TOLNAFTATE 1% CREAM 15 GM TUBE TP SCH ×2 (10:23→21:42)
[2019-08-02] MEDS: PRENATAL VITAMINS W/ FOLIC ACID TABLET (FP) PO SCH (10:23)
[2019-08-02] MEDS ORDERED: BUPRENORPHINE/NALOXONE 4 MG/1 MG FILM PACKET SL ONE (11:40)
[2019-08-02] MEDS ORDERED: BUPRENORPHINE/NALOXONE 2 MG/0.5 MG FILM PACKET SL ONE (11:40)
[2019-08-02] MEDS ORDERED: BUPRENORPHINE/NALOXONE 4 MG/1 MG FILM PACKET ONE (12:13)
[2019-08-02] MEDS ORDERED: BUPRENORPHINE/NALOXONE 2 MG/0.5 MG FILM PACKET ONE (12:14)
[2019-08-02] MEDS ORDERED: BUPRENORPHINE HCL SL SCH (12:30)
[2019-08-02] MEDS ORDERED: [UNRECOGNIZED DRUG - OTHER] SL SCH (12:30)
[2019-08-02] MEDS ORDERED: NALOXONE SL SCH (12:30)
[2019-08-02] MEDS: THIAMINE HCL 100 MG TABLET (FP) PO SCH (21:38)
[2019-08-02] MEDS: QUEtiapine FUMARATE 100 MG TABLET (FP) PO SCH (21:39)
[2019-08-02] MEDS: CYCLOBENZAPRINE HCL 10 MG TABLET (FP) PO PRN (21:39)
[2019-08-02] MEDS: MELATONIN 5 MG TABLETS PO PRN (21:40)
[2019-08-02] MEDS: risperiDONE 3 MG TABLET PO SCH (21:42)
[2019-08-03] MEDS: GABAPENTIN 400 MG CAPSULE (FP) PO SCH ×3 (06:52→21:20)
[2019-08-03] MEDS: LOPERAMIDE HCL 2 MG CAPSULE PO PRN (06:56)
[2019-08-03] MEDS: NAPROXEN 500 MG TABLET (FP) PO SCH ×2 (09:08→21:20)
[2019-08-03] MEDS: HYDROCORTISONE 1% TOPICAL CREAM 30 GM TUBE TP SCH ×2 (09:08→21:21)
[2019-08-03] MEDS: PRENATAL VITAMINS W/ FOLIC ACID TABLET (FP) PO SCH (09:09)
[2019-08-03] MEDS: risperiDONE 1 MG TABLET (FP) PO SCH (09:09)
[2019-08-03] MEDS: NICOTINE 21 MG/24 HOURS TOPICAL PATCH TD SCH (09:09)
[2019-08-03] MEDS: TOLNAFTATE 1% CREAM 15 GM TUBE TP SCH ×2 (09:10→22:06)
--- NOTE | 2019-08-03 09:37 | PN ---
S COWS - Scale Resting Pulse: 1= SC 81-100 Sweatin= Chills/Flushing Restless Observation: 3= Extraneous Movement Pupil Size: 0= Normal to Room Light Bone or Joint Aches: 4=Acute Joint/Muscle Pain Runny Nose/ Eye Tearin= None GI Upset > 30mins: 2= Nausea/Diarrhea Tremor Observation of Outstretched Hands: 0= None Yawning Observation: 0= None Anxiety or Irritability: 1=Feels Anxious/Irritable Goose Flesh Skin: 0=Smooth Skin COWS Score: 12 [facility] Progress Note (SOAP) Subjective: pt still c/o discomfort and requesting increased suboxone to twice daily to "hold me later in the evening". C/o diarrhea, anxiety,irritability and craving. Objective: 08/03/19 09:35 Vital Signs - 24 hr 08/03/19 07:31 Temperature 97.9 F Pulse Rate 99 H Respiratory 18 Rate Blood Pressure 107/72 COWS-12 Assessment: 08/03/19 09:35 Cravings protracted opioid w/s s/p detox Plan: Increase to suboxone 8 mg/2mg sl bid starting today. Increase po fluids.
[2019-08-03] MEDS ORDERED: BUPRENORPHINE/NALOXONE 8 MG/2 MG FILM PACKET SL SCH (10:00)
[2019-08-03] MEDS ORDERED: BUPRENORPHINE/NALOXONE 2 MG/0.5 MG FILM PACKET SL ONE (11:40)
--- NOTE | 2019-08-03 15:09 | PN ---
[facility] Progress Note Note: Patient is scheduled for discharge tomorrow. Scripts fo 30 days supply of medications(Seroquel 100 mg/hs, Risperdal 1 mg/day & 3 mg/hs) will be electronically transmitted to [facility] at [address], [place] [address]
[2019-08-03] MEDS: QUEtiapine FUMARATE 100 MG TABLET (FP) PO SCH (21:20)
[2019-08-03] MEDS: risperiDONE 3 MG TABLET PO SCH (21:20)
[2019-08-03] MEDS: THIAMINE HCL 100 MG TABLET (FP) PO SCH (21:20)
[2019-08-03] MEDS: MELATONIN 5 MG TABLETS PO PRN (21:21)
[2019-08-03] MEDS: CYCLOBENZAPRINE HCL 10 MG TABLET (FP) PO PRN (21:21)
[2019-08-03] MEDS: BUPRENORPHINE/NALOXONE 8 MG/2 MG FILM PACKET SL SCH (21:24)
[2019-08-04] MEDS: GABAPENTIN 400 MG CAPSULE (FP) PO SCH (07:18)
[2019-08-04 07:21] VITALS: BP 111/68; TEMP 98.3
--- NOTE | 2019-08-04 09:02 | DS ---
[facility] Rehab Discharge Summary - [facility] Rehab Discharge Summary Admission Date: 07/29/19 Discharge Date: 08/04/19 - History Present History: Alcohol dependence, Opioid dependence Additional Comments: Pt is a 44 y/o female with a hx of JOCELYNE admitted to rehab after etox on and requesting early discharge today. Pt met with her counselor and has been referred to follow up with CD aftercare treatment with [place], [place]. Pt will continue with suboxone MAT at the [facility]. Pt reports she has a PCP(does not remember the name) on [facility] on [address] [place] [address]. Pertinent Past History: Arthritis Chronic Back pain Ambulates with a walker - Discharge Physical Exam Vital Signs: Vital Signs Temperature 98.3 F 08/04/19 07:02 Pulse Rate 99 H 08/04/19 07:02 Respiratory Rate 18 08/04/19 07:02 Blood Pressure 111/68 08/04/19 07:02 O2 Sat by Pulse Oximetry (%) Alert o x 3 nad oob ambulating with walker with stead but shuffle gait cardiac:s1 s2,rrr lungs:cta,gisele. abdomen:soft,+bs,nt,nd extremities/skin: - Treatment Discharge Condition: Discharge condition good Hospital Course: Rehabilitated safely and responded well. CD aftercare referral accepted at [place], [place]. - Medication Discharge Medications: Ambulatory Orders Meloxicam 15 mg PO PRN 05/10/18 Risperidone 3 mg PO HS 05/10/18 Gabapentin [Neurontin -] 800 mg PO Q8H 07/29/19 Sertraline HCl [Zoloft -] 50 mg PO DAILY 07/29/19 Buprenorphine/Naloxone [Suboxone 8Mg/2Mg Sl Film -] 1 each SL BID #14 packet MDD 2 08/03/19 Quetiapine Fumarate [Seroquel -] 100 mg PO HS #30 tablet 08/03/19 Risperidone [Risperdal -] 1 mg PO DAILY #30 tablet 08/03/19 Risperidone [Risperdal -] 3 mg PO DAILY@2200 #30 tablet 08/03/19 - Medication-Assisted Treatment (MAT) Medication-Assisted Treatment (MAT): Yes Medication Prescribed: Suboxone MAT Follow-up Referral: [facility] - Discharge Instructions Diet, activity, other medical instructions: Diet:regular Activity: oob ad pinky with a walker Other medical instructions:follow up with primary care provider at location indicated above for medical management within 1-2 weeks after discharge. follow up with CD aftercare referral recommendations [facility]. - Follow-up Referral Minutes to complete discharge: 30 - AMA Did Patient Leave Against Medical Advice: No
[2019-08-04] MEDS: risperiDONE 1 MG TABLET (FP) PO SCH (09:21)
[2019-08-04] MEDS: PRENATAL VITAMINS W/ FOLIC ACID TABLET (FP) PO SCH (09:21)
[2019-08-04] MEDS: BUPRENORPHINE/NALOXONE 8 MG/2 MG FILM PACKET SL SCH (09:21)
[2019-08-04] MEDS: NAPROXEN 500 MG TABLET (FP) PO SCH (09:21)
[2019-08-04] MEDS: TOLNAFTATE 1% CREAM 15 GM TUBE TP SCH (09:38)
[2019-08-04] MEDS: NICOTINE 21 MG/24 HOURS TOPICAL PATCH TD SCH (09:38)
== END 2019-08-04 09:33 | disposition home or self-care (01) | DRG 772 ==
LOC: YASAS 11:23 → Y3E 11:24
PROVIDERS: ADMIT Neuromusculoskeletal Medicine & OMM; ATTEND Neuromusculoskeletal Medicine & OMM
PROC: HZ42ZZZ Group Counseling for Substance Abuse Treatment, Cognitive-Behavioral (ICD-10-PCS; principal; 2019-07-29)
DX: F11.23 Opioid dependence with withdrawal (principal); F10.20 Alcohol dependence, uncomplicated; F14.20 Cocaine dependence, uncomplicated; F12.20 Cannabis dependence, uncomplicated; F17.210 Nicotine dependence, cigarettes, uncomplicated; F43.10 Post-traumatic stress disorder, unspecified; F19.282 Other psychoactive substance dependence with psychoactive substance-induced sleep disorder; E78.5 Hyperlipidemia, unspecified; M17.0 Bilateral primary osteoarthritis of knee; M16.0 Bilateral primary osteoarthritis of hip; D64.9 Anemia, unspecified
CPT/HCPCS: J2794

== ENCOUNTER 2021-04-13 19:04 | Inpatient (IN) | payer OTHER ==
[2021-04-13 20:39] VITALS: BMI 27.3
[2021-04-13] MEDS ORDERED: MENTHOL/PHENOL 1 EACH UD MM PRN (22:25)
[2021-04-13] MEDS ORDERED: ACETAMINOPHEN 325 MG TABLET (FP) PO PRN ×2 (22:25)
[2021-04-13] MEDS ORDERED: MAGNESIUM HYDROX 2400MG/30ML ORAL SUSPENSION 30 ML CUP PO PRN (22:25)
[2021-04-13] MEDS ORDERED: MAG HYDROX/AL HYDROX/SIMETH 30 ML UNIT-DOSE CUP PO PRN (22:25)
[2021-04-13] MEDS ORDERED: methaDONE HCL 10 MG TABLET (FOR DETOX USE ONLY) PO ONE (22:25)
[2021-04-13] MEDS ORDERED: cloNIDine HCL 0.1 MG TABLET PO PRN (22:25)
[2021-04-13] MEDS ORDERED: IBUPROFEN 400 MG TABLET (FP) PO PRN (22:25)
[2021-04-13] MEDS ORDERED: NICOTINE POLACRILEX 2 MG GUM BUC PRN (22:25)
[2021-04-13] MEDS ORDERED: MAGNESIUM CITRATE 300 ML BOTTLE PO PRN (22:25)
[2021-04-13] MEDS ORDERED: diazePAM 5 MG TABLET PO PRN (22:33)
[2021-04-14] MEDS: diazePAM 5 MG TABLET PO SCH ×5 (00:34→22:49)
[2021-04-14] MEDS: hydrOXYzine PAMOATE 25 MG CAPSULE (FP) PO SCH ×5 (06:21→22:50)
[2021-04-14] MEDS ORDERED: methaDONE HCL 10 MG TABLET (FOR DETOX USE ONLY) ONE (09:00)
[2021-04-14 10:11] LABS: HEMATOCRIT 36.8 % (32.4-45.2); HEMOGLOBIN 12.3 GM/dL (10.7-15.3); MCH 30.3 pg (25.7-33.7); MCHC 33.5 g/dl (32.0-36.0); MEAN CELL VOLUME 90.5 fl (80-96); MEAN PLT VOLUME 7.3 fl (7.5-11.1); PLATELET COUNT 363 10^3/uL (134-434); RBC 4.07 M/mm3 (3.60-5.2); RDW 13.6 % (11.6-15.6); WHITE BLOOD COUNT 6.1 K/mm3 (4.0-10.0)
[2021-04-14 10:28] LABS: ALBUMIN 3.6 g/dl (3.4-5.0); BLOOD UREA NITROGEN 17.6 mg/dL (7-18); CALCIUM 8.9 mg/dL (8.5-10.1)
[2021-04-14 10:31] LABS: CREATININE 0.6 mg/dL (0.55-1.3)
[2021-04-14 10:33] LABS: BILIRUBIN,TOTAL 0.5 mg/dL (0.2-1)
[2021-04-14] MEDS: PRENATAL VITAMINS W/ FOLIC ACID TABLET (FP) PO SCH (11:00)
[2021-04-14] MEDS: MELATONIN 5 MG TABLETS PO SCH (22:50)
[2021-04-14] MEDS: QUEtiapine FUMARATE 50 MG TABLET PO SCH (22:50)
[2021-04-14] MEDS: THIAMINE HCL 100 MG TABLET (FP) PO SCH (23:59)
[2021-04-15] MEDS: METHOCARBAMOL 500 MG TABLET PO PRN (02:13)
[2021-04-15] MEDS: diazePAM 5 MG TABLET PO SCH ×3 (05:29→22:42)
[2021-04-15] MEDS: hydrOXYzine PAMOATE 25 MG CAPSULE (FP) PO SCH ×5 (06:06→22:42)
[2021-04-15] MEDS: PRENATAL VITAMINS W/ FOLIC ACID TABLET (FP) PO SCH (09:44)
[2021-04-15] MEDS ORDERED: methaDONE HCL 10 MG TABLET (FOR DETOX USE ONLY) PO ONE (10:00)
[2021-04-15] MEDS: MELATONIN 5 MG TABLETS PO SCH (22:41)
[2021-04-15] MEDS: THIAMINE HCL 100 MG TABLET (FP) PO SCH (22:42)
[2021-04-15] MEDS: QUEtiapine FUMARATE 50 MG TABLET PO SCH (22:42)
[2021-04-16] MEDS: METHOCARBAMOL 500 MG TABLET PO PRN (01:59)
[2021-04-16] MEDS: hydrOXYzine PAMOATE 25 MG CAPSULE (FP) PO SCH ×2 (07:02→09:46)
[2021-04-16] MEDS: diazePAM 5 MG TABLET PO SCH ×2 (07:02→17:49)
[2021-04-16] MEDS ORDERED: methaDONE HCL 10 MG TABLET (FOR DETOX USE ONLY) ONE (08:31)
[2021-04-16] MEDS: PRENATAL VITAMINS W/ FOLIC ACID TABLET (FP) PO SCH (09:46)
[2021-04-16] MEDS ORDERED: guaiFENesin 200 MG/10 ML 10 ML UNIT-DOSE CUPS PO PRN (11:50)
[2021-04-16] MEDS: LIDOCAINE 5% TOPICAL PATCH TP SCH (12:47)
[2021-04-16] MEDS: NAPROXEN 500 MG TABLET PO SCH ×2 (12:47→22:34)
[2021-04-16] MEDS ORDERED: HYDROCORTISONE 1% TOPICAL CREAM 30 GM TUBE TP PRN (17:43)
[2021-04-16] MEDS: THIAMINE HCL 100 MG TABLET (FP) PO SCH (22:34)
[2021-04-16] MEDS: QUEtiapine FUMARATE 50 MG TABLET PO SCH (22:34)
[2021-04-16] MEDS: hydrOXYzine PAMOATE 25 MG CAPSULE (FP) PO PRN (22:34)
[2021-04-16] MEDS: ONDANSETRON *ODT* 4 MG TABLET SL PRN (22:34)
[2021-04-16] MEDS: LIDOCAINE PATCH REMOVAL MC SCH (22:37)
[2021-04-16] MEDS: MELATONIN 5 MG TABLETS PO SCH (22:38)
[2021-04-17] MEDS: METHOCARBAMOL 500 MG TABLET PO PRN ×2 (01:33→10:03)
[2021-04-17] MEDS ORDERED: diazePAM 5 MG TABLET PO ONE (06:00)
[2021-04-17] MEDS ORDERED: methaDONE HCL 10 MG TABLET (FOR DETOX USE ONLY) PO ONE (10:00)
[2021-04-17] MEDS: NAPROXEN 500 MG TABLET PO SCH ×2 (10:03→22:16)
[2021-04-17] MEDS: hydrOXYzine PAMOATE 25 MG CAPSULE (FP) PO PRN (10:04)
[2021-04-17] MEDS: PRENATAL VITAMINS W/ FOLIC ACID TABLET (FP) PO SCH (10:04)
[2021-04-17] MEDS: LIDOCAINE 5% TOPICAL PATCH TP SCH (10:05)
[2021-04-17] MEDS: CITALOPRAM HYDROBROMIDE 10 MG TABLET PO SCH (10:07)
[2021-04-17] MEDS: BISMUTH SUBSALICYLATE 524 MG/30 ML PO PRN ×2 (20:32→22:20)
[2021-04-17] MEDS ORDERED: QUEtiapine FUMARATE 200 MG TABLET PO SCH (22:00)
[2021-04-17] MEDS: MELATONIN 5 MG TABLETS PO SCH (22:16)
[2021-04-17] MEDS: LIDOCAINE PATCH REMOVAL MC SCH (22:16)
[2021-04-17] MEDS: THIAMINE HCL 100 MG TABLET (FP) PO SCH (22:17)
[2021-04-18] MEDS: CITALOPRAM HYDROBROMIDE 10 MG TABLET PO SCH (09:21)
[2021-04-18] MEDS: PRENATAL VITAMINS W/ FOLIC ACID TABLET (FP) PO SCH (09:22)
[2021-04-18] MEDS: NAPROXEN 500 MG TABLET PO SCH (09:22)
[2021-04-18] MEDS: LIDOCAINE 5% TOPICAL PATCH TP SCH ×2 (09:23→09:55)
[2021-04-18 09:43] VITALS: BP 110/66; PULSE 88; TEMP 96.8
[2021-04-18] MEDS: ONDANSETRON *ODT* 4 MG TABLET SL PRN (09:59)
== END 2021-04-18 16:30 | disposition other institution (70) | DRG 773 ==
LOC: YASAS 19:04 → Y3N 23:32
PROVIDERS: ADMIT Allergy & Immunology; ATTEND Allergy & Immunology
PROC: HZ2ZZZZ Detoxification Services for Substance Abuse Treatment (ICD-10-PCS; principal; 2021-04-13)
DX: F11.23 Opioid dependence with withdrawal (principal); F10.230 Alcohol dependence with withdrawal, uncomplicated; F14.20 Cocaine dependence, uncomplicated; F12.20 Cannabis dependence, uncomplicated; F17.210 Nicotine dependence, cigarettes, uncomplicated; F19.282 Other psychoactive substance dependence with psychoactive substance-induced sleep disorder; F19.24 Other psychoactive substance dependence with psychoactive substance-induced mood disorder; F25.9 Schizoaffective disorder, unspecified; F31.9 Bipolar disorder, unspecified; F60.9 Personality disorder, unspecified; F43.10 Post-traumatic stress disorder, unspecified; F41.0 Panic disorder [episodic paroxysmal anxiety]; M17.0 Bilateral primary osteoarthritis of knee; M16.0 Bilateral primary osteoarthritis of hip; Z62.810 Personal history of physical and sexual abuse in childhood; Z91.410 Personal history of adult physical and sexual abuse; Z99.89 Dependence on other enabling machines and devices; Z91.14 Patient's other noncompliance with medication regimen
CPT/HCPCS: 36415; 73562-TC-LT-FY; 80053; 81025; 85027; 86780; C9803; Q0162; U0003; U0005

== ENCOUNTER 2022-05-03 12:11 | Inpatient (IN) | payer OTHER ==
[2022-05-03 14:14] VITALS: BMI 22.6
[2022-05-03] MEDS ORDERED: ONDANSETRON *ODT* 4 MG TABLET SL PRN (15:23)
[2022-05-03] MEDS ORDERED: MAG HYDROX/AL HYDROX/SIMETH 30 ML UNIT-DOSE CUP PO PRN (15:23)
[2022-05-03] MEDS ORDERED: LOPERAMIDE HCL 2 MG CAPSULE PO PRN (15:23)
[2022-05-03] MEDS ORDERED: methaDONE HCL 10 MG TABLET (FOR DETOX USE ONLY) PO ONE (15:23)
[2022-05-03] MEDS ORDERED: MAGNESIUM HYDROX 2400MG/30ML ORAL SUSPENSION 30 ML CUP PO PRN (15:23)
[2022-05-03] MEDS ORDERED: BISMUTH SUBSALICYLATE 262 MG/15 ML BTL PO PRN (15:23)
[2022-05-03] MEDS ORDERED: chlordiazePOXIDE HCL 25 MG CAPSULE PO PRN (15:23)
[2022-05-03] MEDS ORDERED: ACETAMINOPHEN 325 MG TABLET (FP) PO PRN ×2 (15:23)
[2022-05-03] MEDS ORDERED: cloNIDine HCL 0.1 MG TABLET PO PRN (15:23)
[2022-05-03] MEDS ORDERED: DICYCLOMINE HCL 10 MG CAPSULE PO PRN (15:23)
[2022-05-03] MEDS ORDERED: chlordiazePOXIDE HCL 25 MG CAPSULE PO ONE (15:23)
[2022-05-03] MEDS ORDERED: BENZOCAINE/MENTHOL (CHLORASEPTIC ) LOZENGE MM PRN (15:23)
[2022-05-03] MEDS ORDERED: MAGNESIUM CITRATE 300 ML BOTTLE PO PRN (15:23)
[2022-05-03] MEDS ORDERED: IBUPROFEN 400 MG TABLET (FP) PO PRN (15:23)
[2022-05-03] MEDS: chlordiazePOXIDE HCL 25 MG CAPSULE PO SCH ×2 (17:09→22:16)
[2022-05-03] MEDS: PRENATAL VITAMINS W/ FOLIC ACID TABLET (FP) PO SCH (17:12)
[2022-05-03] MEDS: hydrOXYzine PAMOATE 25 MG CAPSULE (FP) PO SCH ×2 (17:52→22:16)
[2022-05-03] MEDS ORDERED: MINERAL OIL/PETROLAT/WATER TOPICAL CREAM 454 GM JAR TP PRN (19:40)
[2022-05-03] MEDS: IBUPROFEN 600 MG TABLET (FP) PO PRN (20:04)
[2022-05-03] MEDS: THIAMINE HCL 100 MG TABLET (FP) PO SCH (22:16)
[2022-05-03] MEDS: MELATONIN 5 MG TABLETS PO SCH (22:16)
[2022-05-04] MEDS: chlordiazePOXIDE HCL 25 MG CAPSULE PO SCH ×4 (05:34→22:35)
[2022-05-04] MEDS: METHOCARBAMOL 500 MG TABLET PO PRN ×2 (05:36→17:40)
[2022-05-04] MEDS: IBUPROFEN 600 MG TABLET (FP) PO PRN (05:36)
[2022-05-04] MEDS: hydrOXYzine PAMOATE 25 MG CAPSULE (FP) PO SCH ×5 (05:38→22:35)
[2022-05-04] MEDS: PRENATAL VITAMINS W/ FOLIC ACID TABLET (FP) PO SCH (10:27)
[2022-05-04] MEDS: risperiDONE 1 MG TABLET PO SCH ×2 (11:30→22:35)
[2022-05-04 12:10] LABS: HEMATOCRIT 36.8 % (32.4-45.2); MCHC 32.6 g/dl (32.0-36.0); MEAN PLT VOLUME 7.8 fl (7.5-11.1); PLATELET COUNT 361 10^3/uL (134-434); RBC 4.13 M/mm3 (3.60-5.2); RDW 13.4 % (11.6-15.6); WHITE BLOOD COUNT 6.3 K/mm3 (4.0-10.0)
[2022-05-04 12:19] LABS: ALBUMIN 3.2 g/dl (3.4-5.0)
[2022-05-04 12:21] LABS: CREATININE 0.7 mg/dL (0.55-1.3)
[2022-05-04 12:23] LABS: BILIRUBIN,TOTAL 0.5 mg/dL (0.2-1); TOT PROT 6.3 g/dl (6.4-8.2)
[2022-05-04] MEDS: MELATONIN 5 MG TABLETS PO SCH (22:35)
[2022-05-04] MEDS: THIAMINE HCL 100 MG TABLET (FP) PO SCH (22:35)
[2022-05-05] MEDS: METHOCARBAMOL 500 MG TABLET PO PRN ×3 (03:40→22:45)
[2022-05-05] MEDS: IBUPROFEN 600 MG TABLET (FP) PO PRN ×2 (03:40→17:41)
[2022-05-05] MEDS: hydrOXYzine PAMOATE 25 MG CAPSULE (FP) PO SCH ×5 (06:09→22:45)
[2022-05-05] MEDS: chlordiazePOXIDE HCL 25 MG CAPSULE PO SCH ×4 (06:09→22:45)
[2022-05-05] MEDS ORDERED: methaDONE HCL 10 MG TABLET (FOR DETOX USE ONLY) PO ONE (10:00)
[2022-05-05] MEDS: risperiDONE 1 MG TABLET PO SCH ×2 (10:49→22:45)
[2022-05-05] MEDS: PRENATAL VITAMINS W/ FOLIC ACID TABLET (FP) PO SCH (10:49)
[2022-05-05] MEDS: MELATONIN 5 MG TABLETS PO SCH (22:45)
[2022-05-05] MEDS: THIAMINE HCL 100 MG TABLET (FP) PO SCH (22:45)
[2022-05-06] MEDS ORDERED: chlordiazePOXIDE HCL 10 MG CAPSULE PO PRN
[2022-05-06] MEDS: METHOCARBAMOL 500 MG TABLET PO PRN (05:24)
[2022-05-06] MEDS: hydrOXYzine PAMOATE 25 MG CAPSULE (FP) PO SCH ×4 (06:20→17:39)
[2022-05-06] MEDS: chlordiazePOXIDE HCL 10 MG CAPSULE PO SCH ×3 (06:20→17:38)
[2022-05-06] MEDS: PRENATAL VITAMINS W/ FOLIC ACID TABLET (FP) PO SCH (10:52)
[2022-05-06] MEDS: risperiDONE 1 MG TABLET PO SCH (10:52)
[2022-05-06] MEDS: NICOTINE 10 MG CARTRIDGE (INHALER) IH PRN (17:47)
[2022-05-06] MEDS: IBUPROFEN 600 MG TABLET (FP) PO PRN (19:06)
[2022-05-07] MEDS: MELATONIN 5 MG TABLETS PO SCH (05:28)
[2022-05-07] MEDS: THIAMINE HCL 100 MG TABLET (FP) PO SCH ×2 (05:29→22:18)
[2022-05-07] MEDS: hydrOXYzine PAMOATE 25 MG CAPSULE (FP) PO SCH ×6 (05:29→22:18)
[2022-05-07] MEDS: risperiDONE 1 MG TABLET PO SCH ×3 (05:29→22:18)
[2022-05-07] MEDS: chlordiazePOXIDE HCL 10 MG CAPSULE PO SCH ×3 (05:29→18:44)
[2022-05-07] MEDS: NICOTINE 10 MG CARTRIDGE (INHALER) IH PRN ×2 (06:57→19:57)
[2022-05-07] MEDS: METHOCARBAMOL 500 MG TABLET PO PRN ×2 (06:57→22:45)
[2022-05-07] MEDS: IBUPROFEN 600 MG TABLET (FP) PO PRN ×2 (06:57→22:46)
[2022-05-07] MEDS: PRENATAL VITAMINS W/ FOLIC ACID TABLET (FP) PO SCH (09:46)
[2022-05-07] MEDS: SIMETHICONE 80 MG TAB.CHEW (FP) PO SCH ×3 (14:45→22:18)
[2022-05-07] MEDS ORDERED: MELATONIN 5 MG TABLETS PO SCH (22:00)
[2022-05-08] MEDS ORDERED: chlordiazePOXIDE HCL 10 MG CAPSULE PO ONE (05:00)
[2022-05-08] MEDS: hydrOXYzine PAMOATE 25 MG CAPSULE (FP) PO SCH ×3 (06:25→13:43)
[2022-05-08] MEDS: PRENATAL VITAMINS W/ FOLIC ACID TABLET (FP) PO SCH (10:59)
[2022-05-08] MEDS: risperiDONE 1 MG TABLET PO SCH (10:59)
[2022-05-08] MEDS: SIMETHICONE 80 MG TAB.CHEW (FP) PO SCH ×2 (10:59→13:43)
[2022-05-08] MEDS: METHOCARBAMOL 500 MG TABLET PO PRN (11:11)
[2022-05-08] MEDS: IBUPROFEN 600 MG TABLET (FP) PO PRN (11:13)
[2022-05-08 13:42] VITALS: BP 142/76; PULSE 117; RESP 18; TEMP 98.1
== END 2022-05-08 15:50 | disposition home or self-care (01) | DRG 773 ==
LOC: YASAS 12:11 → Y6N 15:10
PROVIDERS: ADMIT Allergy & Immunology; ATTEND Surgery
PROC: HZ2ZZZZ Detoxification Services for Substance Abuse Treatment (ICD-10-PCS; principal; 2022-05-03)
DX: F11.23 Opioid dependence with withdrawal (principal); F10.230 Alcohol dependence with withdrawal, uncomplicated; F14.20 Cocaine dependence, uncomplicated; F17.213 Nicotine dependence, cigarettes, with withdrawal; F25.0 Schizoaffective disorder, bipolar type; F19.24 Other psychoactive substance dependence with psychoactive substance-induced mood disorder; E78.5 Hyperlipidemia, unspecified; M25.511 Pain in right shoulder; M17.0 Bilateral primary osteoarthritis of knee; M16.0 Bilateral primary osteoarthritis of hip; R26.2 Difficulty in walking, not elsewhere classified; Z99.89 Dependence on other enabling machines and devices; W18.30XA Fall on same level, unspecified, initial encounter; Y93.9 Activity, unspecified; Y92.239 Unspecified place in hospital as the place of occurrence of the external cause; Z62.810 Personal history of physical and sexual abuse in childhood; Z91.51 Personal history of suicidal behavior; Z56.0 Unemployment, unspecified
CPT/HCPCS: 36415; 80053; 81025; 85027; 86780; 87811; C9803-CS; J0735; J2794; U0003; U0005

== ENCOUNTER 2022-05-06 20:17 | Emergency (ER) | payer OTHER ==
[2022-05-06 20:59] VITALS: BP 107/65; PULSE 99; RESP 18; TEMP 98.7; BMI 24.5
== END 2022-05-07 03:50 | disposition home or self-care (01) ==
LOC: JER 20:17
DX: S09.90XA Unspecified injury of head, initial encounter (principal); S40.011A Contusion of right shoulder, initial encounter; W01.0XXA Fall on same level from slipping, tripping and stumbling without subsequent striking against object, initial encounter
CPT/HCPCS: 70450-TC; 72125-TC; 73030-TC-RT-FY; 99284-25

== ENCOUNTER 2024-12-11 16:29 | Inpatient (IN) | payer OTHER ==
[2024-12-11 17:05] VITALS: BMI 25.1
[2024-12-11] MEDS ORDERED: NICOTINE POLACRILEX 2 MG LOZENGE BC PRN (19:27)
[2024-12-11] MEDS ORDERED: IBUPROFEN 400 MG TABLET (FP) PO PRN (19:27)
[2024-12-11] MEDS ORDERED: NALOXONE (NARCAN) HCL 4 MG/0.1 ML SPRAY NS PRN (19:27)
[2024-12-11] MEDS ORDERED: MAGNESIUM HYDROX 2400MG/30ML ORAL SUSPENSION 30 ML CUP PO PRN (19:27)
[2024-12-11] MEDS ORDERED: ONDANSETRON *ODT* 4 MG TABLET SL PRN (19:27)
[2024-12-11] MEDS ORDERED: POLYETHYLENE GLYCOL (HEALTHYLAX) 3350 17 GM PACKET PO PRN (19:27)
[2024-12-11] MEDS ORDERED: LOPERAMIDE HCL 2 MG CAPSULE PO PRN (19:27)
[2024-12-11] MEDS ORDERED: DICYCLOMINE HCL 10 MG CAPSULE PO PRN (19:27)
[2024-12-11] MEDS ORDERED: P-EPHED 60MG/TRIPROLIDI 2.5MG TABLET PO PRN (19:27)
[2024-12-11] MEDS ORDERED: BENZOCAINE/MENTHOL (CHLORASEPTIC ) LOZENGE MM PRN (19:27)
[2024-12-11] MEDS ORDERED: guaiFENesin 600 MG TABLET.ER (FP) PO PRN (19:27)
[2024-12-11] MEDS ORDERED: BISMUTH SUBSALICYLATE 524 MG/30 ML PO PRN (19:27)
[2024-12-11] MEDS ORDERED: BENZONATATE 200 MG CAPSULE PO PRN (19:27)
[2024-12-11] MEDS ORDERED: MAG HYDROX/AL HYDROX/SIMETH 30 ML UNIT-DOSE CUP PO PRN (19:27)
[2024-12-11] MEDS ORDERED: NICOTINE POLACRILEX 2 MG GUM BUC PRN (19:27)
[2024-12-11] MEDS: hydrOXYzine PAMOATE 25 MG CAPSULE (FP) PO PRN (22:48)
[2024-12-11] MEDS: MELATONIN 5 MG TABLETS PO SCH (22:48)
[2024-12-11] MEDS: THIAMINE 100 MG TABLET PO SCH (22:48)
[2024-12-11] MEDS: METHOCARBAMOL 500 MG TABLET PO PRN (22:48)
[2024-12-11] MEDS: IBUPROFEN 600 MG TABLET (FP) PO PRN (22:52)
[2024-12-12 09:25] LABS: POTASSIUM 4.4 mmol/L (3.5-5.1)
[2024-12-12 09:28] LABS: HEMATOCRIT 35.2 % (32.4-45.2); HEMOGLOBIN 11.8 GM/dL (10.7-15.3); MCH 30.4 pg (25.7-33.7); MCHC 33.5 g/dl (32.0-36.0); MEAN CELL VOLUME 90.8 fl (80-96); MEAN PLT VOLUME 7.6 fl (7.5-11.1); PLATELET COUNT 317 10^3/uL (134-434); RBC 3.88 M/mm3 (3.60-5.2); RDW 14.1 % (11.6-15.6); WHITE BLOOD COUNT 4.8 K/mm3 (4.0-10.0)
[2024-12-12 09:37] LABS: BLOOD UREA NITROGEN 22.8 mg/dL (7-18); CALCIUM 8.9 mg/dL (8.5-10.1)
[2024-12-12 09:40] LABS: CREATININE 0.4 mg/dL (0.55-1.3)
[2024-12-12 09:41] LABS: BILIRUBIN,TOTAL 0.3 mg/dL (0.2-1); TOT PROT 5.7 g/dl (6.4-8.2)
[2024-12-12] MEDS: PRENATAL VITAMINS W/ FOLIC ACID TABLET (FP) PO SCH (09:42)
[2024-12-12 11:11] LABS: HCV DIAGNOSTIC IN-HOUSE W/RFLX NON-REACTIVE (NONREACTIVE)
[2024-12-12 11:12] LABS: HIV INTERPRETATION NEGATIVE (NEGATIVE)
[2024-12-12] MEDS ORDERED: cloNIDine HCL 0.1 MG TABLET PO PRN (11:13)
[2024-12-12] MEDS ORDERED: diazePAM 5 MG TABLET PO PRN (11:13)
[2024-12-12] MEDS: diazePAM 5 MG TABLET PO SCH (11:27)
[2024-12-12] MEDS: FLU VACCINE (FLULAVAL) PF 45 MCG/0.5 ML SYRINGE 2024-2025 IM ONE (11:30)
[2024-12-12] MEDS: GABAPENTIN 400 MG CAPSULE PO SCH (13:13)
[2024-12-12] MEDS: OLANZapine 5 MG TABLET PO SCH (13:13)
[2024-12-12] MEDS: HYDROCORTISONE 1% TOPICAL CREAM 30 GM TUBE TP ONE (15:25)
[2024-12-12] MEDS: ACETAMINOPHEN 325 MG TABLET (FP) PO PRN (17:39)
[2024-12-12] MEDS: traZODone HCL 100 MG TABLET (FP) PO SCH (22:30)
[2024-12-12] MEDS: HYDROCORTISONE 1% TOPICAL CREAM 30 GM TUBE TP SCH (22:31)
[2024-12-13] MEDS: diazePAM 5 MG TABLET PO SCH (06:00)
[2024-12-13] MEDS: methaDONE HCL 10 MG TABLET (FOR DETOX USE ONLY) PO ONE (10:02)
[2024-12-13 13:09] VITALS: BP 135/78; PULSE 105; RESP 20; TEMP 98.7
[2024-12-13] MEDS: ASPIRIN 81 MG CHEWABLE TABLETS PO ONE (13:46)
[2024-12-14] MEDS: diazePAM 5 MG TABLET PO SCH (06:33)
[2024-12-14] MEDS ORDERED: ASPIRIN 81 MG CHEWABLE TABLETS PO SCH (10:00)
[2024-12-14] MEDS ORDERED: PNEUMOC 20-VAL CONJ-DIP CRM/PF 0.5 ML SYRINGE IM ONE (12:00)
[2024-12-15] MEDS ORDERED: diazePAM 5 MG TABLET PO ONE (06:00)
[2024-12-15] MEDS ORDERED: methaDONE HCL 10 MG TABLET (FOR DETOX USE ONLY) PO ONE (10:00)
== END 2024-12-14 08:03 | disposition short-term general hospital (02) | DRG 773 ==
LOC: YASAS 16:29 → Y6N 20:19
PROVIDERS: ADMIT Neuromusculoskeletal Medicine & OMM; ATTEND Allergy & Immunology
PROC: HZ2ZZZZ Detoxification Services for Substance Abuse Treatment (ICD-10-PCS; principal; 2024-12-11)
DX: F11.23 Opioid dependence with withdrawal (principal); F10.230 Alcohol dependence with withdrawal, uncomplicated; F14.20 Cocaine dependence, uncomplicated; F12.20 Cannabis dependence, uncomplicated; F17.210 Nicotine dependence, cigarettes, uncomplicated; F19.282 Other psychoactive substance dependence with psychoactive substance-induced sleep disorder; F19.280 Other psychoactive substance dependence with psychoactive substance-induced anxiety disorder; F19.24 Other psychoactive substance dependence with psychoactive substance-induced mood disorder; R79.89 Other specified abnormal findings of blood chemistry; R94.31 Abnormal electrocardiogram [ECG] [EKG]; Z20.822 Contact with and (suspected) exposure to COVID-19; Z99.89 Dependence on other enabling machines and devices
CPT/HCPCS: 36415; 80053; 80305; 80307; 81025; 82550; 84484; 85027; 86780; 86803; 87389; 93005; 93010

== ENCOUNTER 2024-12-13 14:18 | Inpatient (IN) | payer OTHER ==
[2024-12-13 15:31] LABS: BASO % 0.9 % (0-2.0); EOS % 3.2 % (0-4.5); HEMATOCRIT 38.4 % (32.4-45.2); HEMOGLOBIN 12.4 GM/dL (10.7-15.3); LYMPH % 40.9 % (8-40); MCH 29.3 pg (25.7-33.7); MCHC 32.3 g/dl (32.0-36.0); MEAN CELL VOLUME 90.6 fl (80-96); MEAN PLT VOLUME 7.2 fl (7.5-11.1); MONO % 9.9 % (3.8-10.2); NEUT % 45.1 % (42.8-82.8); PLATELET COUNT 332 10^3/uL (134-434); RBC 4.23 M/mm3 (3.60-5.2); RDW 14.5 % (11.6-15.6); WHITE BLOOD COUNT 4.7 K/mm3 (4.0-10.0)
[2024-12-13 15:49] LABS: POTASSIUM 4.5 mmol/L (3.5-5.1)
[2024-12-13 15:51] LABS: ALBUMIN 3.2 g/dl (3.4-5.0); BLOOD UREA NITROGEN 16.4 mg/dL (7-18); CALCIUM 9.5 mg/dL (8.5-10.1)
[2024-12-13 15:54] LABS: CREATININE 0.5 mg/dL (0.55-1.3)
[2024-12-13 15:56] LABS: BILIRUBIN,TOTAL 0.2 mg/dL (0.2-1); TOT PROT 6.3 g/dl (6.4-8.2)
[2024-12-13 15:59] LABS: N-TERMINAL BNP 641.1 pg/ml (5-125)
[2024-12-13 16:52] LABS: HIV INTERPRETATION NEGATIVE (NEGATIVE)
[2024-12-13] MEDS ORDERED: cloNIDine HCL 0.1 MG TABLET PO PRN (22:14)
[2024-12-13] MEDS ORDERED: NALOXONE HCL (KLOXXADO) 8 MG SPRAY NS PRN (22:29)
[2024-12-14] MEDS ORDERED: diazePAM 5 MG TABLET ONE (00:24)
[2024-12-14] MEDS: diazePAM 5 MG TABLET PO SCH ×2 (00:27→05:48)
[2024-12-14 01:42] VITALS: BMI 27.3
[2024-12-14] MEDS: ACETAMINOPHEN 325 MG TABLET (FP) PO PRN (02:03)
[2024-12-14] MEDS: GABAPENTIN 400 MG CAPSULE PO SCH (05:48)
[2024-12-14] MEDS ORDERED: GABAPENTIN 400 MG CAPSULE PO SCH ×2 (06:00)
[2024-12-14 06:57] LABS: HEMATOCRIT 42.6 % (32.4-45.2); HEMOGLOBIN 13.8 GM/dL (10.7-15.3); MCHC 32.4 g/dl (32.0-36.0); MEAN CELL VOLUME 92.5 fl (80-96); MEAN PLT VOLUME 7.5 fl (7.5-11.1); PLATELET COUNT 336 10^3/uL (134-434); RBC 4.61 M/mm3 (3.60-5.2); RDW 14.3 % (11.6-15.6); WHITE BLOOD COUNT 5.7 K/mm3 (4.0-10.0)
[2024-12-14 07:23] LABS: POTASSIUM 4.4 mmol/L (3.5-5.1)
[2024-12-14 07:26] LABS: CALCIUM 9.6 mg/dL (8.5-10.1)
[2024-12-14 07:27] LABS: ALBUMIN 3.7 g/dl (3.4-5.0); BLOOD UREA NITROGEN 15.8 mg/dL (7-18); MAGNESIUM 2.1 mg/dL (1.8-2.4)
[2024-12-14 07:30] LABS: CREATININE 0.6 mg/dL (0.55-1.3); PHOSPHOROUS 4.5 mg/dL (2.5-4.9)
[2024-12-14 07:32] LABS: BILIRUBIN,TOTAL 0.3 mg/dL (0.2-1)
[2024-12-14] MEDS: ENOXAPARIN NA (PORCINE) 40 MG/0.4 ML DISP.SYRIN SQ SCH (09:44)
[2024-12-14] MEDS: THIAMINE 100 MG TABLET PO SCH (09:44)
[2024-12-14] MEDS: OLANZapine 5 MG TABLET PO SCH (09:45)
[2024-12-14] MEDS: oxyCODONE HCL 10 MG SUSTAINED ACTING TABLET PO ONE (16:55)
[2024-12-14] MEDS ORDERED: traZODone HCL 50 MG TABLET (FP) PO SCH ×3 (22:00)
[2024-12-15] MEDS: oxyCODONE HCL 10 MG SUSTAINED ACTING TABLET PO ONE (05:02)
[2024-12-15] MEDS: diazePAM 5 MG TABLET PO ONE (05:10)
[2024-12-15] MEDS ORDERED: methaDONE HCL 10 MG TABLET PO ONE (06:00)
[2024-12-15 08:02] LABS: POTASSIUM 4.2 mmol/L (3.5-5.1)
[2024-12-15 08:09] LABS: HEMOGLOBIN 12.6 g/dL (11.2-15.7); MCHC 31.5 g/dl (32.2-35.5); MEAN CELL VOLUME 93.5 fl (79.4-94.8); MEAN PLT VOLUME 9.4 fl (9.4-12.3); PLATELET COUNT # 324 x10^3/uL (182-369); RDW 13.4 % (12.2-17.1)
[2024-12-15 08:10] LABS: ALBUMIN 3.1 g/dl (3.4-5.0); BLOOD UREA NITROGEN 14.3 mg/dL (7-18)
[2024-12-15 08:14] LABS: CREATININE 0.5 mg/dL (0.55-1.3)
[2024-12-15 08:15] LABS: BILIRUBIN,TOTAL 0.4 mg/dL (0.2-1); TOT PROT 6.1 g/dl (6.4-8.2)
[2024-12-15 18:03] VITALS: RESP 18
[2024-12-16] MEDS: diazePAM 5 MG TABLET PO PRN (01:36)
[2024-12-16] MEDS: hydrOXYzine PAMOATE 25 MG CAPSULE (FP) PO PRN (10:08)
[2024-12-16 12:26] VITALS: TEMP 98.2
[2024-12-16] MEDS: oxyCODONE HCL 5 MG TABLET PO ONE (13:52)
[2024-12-16 14:14] VITALS: BP 112/64; PULSE 80
== END 2024-12-16 14:35 | disposition other institution (70) | DRG 201 ==
LOC: JER 14:18 → JERBED 19:14 → OBSVTOIN 22:37 → J2W 12-14 00:54 → J4W 12-14 20:55
PROVIDERS: ADMIT Internal Medicine; ATTEND Internal Medicine
DX: I45.81 Long QT syndrome (principal); F25.9 Schizoaffective disorder, unspecified; I10 Essential (primary) hypertension; E78.5 Hyperlipidemia, unspecified; F11.23 Opioid dependence with withdrawal; F19.10 Other psychoactive substance abuse, uncomplicated; F31.9 Bipolar disorder, unspecified; R79.89 Other specified abnormal findings of blood chemistry
CPT/HCPCS: 36415; 71045-TC-FY; 71275-TC; 80053; 83735; 83880; 84100; 84484; 84703; 85025; 85027; 86803; 87389; 93005; 93010; 93306-TC; 93970-TC; 99285-25; G0378

== ENCOUNTER 2024-12-16 14:50 | Inpatient (IN) | payer OTHER ==
[2024-12-16 15:34] VITALS: BMI 25.7
[2024-12-16] MEDS ORDERED: MAGNESIUM HYDROX 2400MG/30ML ORAL SUSPENSION 30 ML CUP PO PRN (15:45)
[2024-12-16] MEDS ORDERED: BENZONATATE 200 MG CAPSULE PO PRN (15:45)
[2024-12-16] MEDS ORDERED: IBUPROFEN 400 MG TABLET (FP) PO PRN (15:45)
[2024-12-16] MEDS ORDERED: POLYETHYLENE GLYCOL (HEALTHYLAX) 3350 17 GM PACKET PO PRN (15:45)
[2024-12-16] MEDS ORDERED: BENZOCAINE/MENTHOL (CHLORASEPTIC ) LOZENGE MM PRN (15:45)
[2024-12-16] MEDS ORDERED: MAG HYDROX/AL HYDROX/SIMETH 30 ML UNIT-DOSE CUP PO PRN (15:45)
[2024-12-16] MEDS ORDERED: NALOXONE HCL 0.4 MG/ML VIAL IVPUSH PRN (15:45)
[2024-12-16] MEDS ORDERED: guaiFENesin 600 MG TABLET.ER (FP) PO PRN (15:45)
[2024-12-16] MEDS ORDERED: NALOXONE (NARCAN) HCL 4 MG/0.1 ML SPRAY NS PRN (15:45)
[2024-12-16] MEDS ORDERED: LOPERAMIDE HCL 2 MG CAPSULE PO PRN (15:45)
[2024-12-16] MEDS: PRENATAL VITAMINS W/ FOLIC ACID TABLET (FP) PO SCH (16:48)
[2024-12-16] MEDS ORDERED: NICOTINE 14 MG/24 HOURS TOPICAL PATCH TD ONE (16:50)
[2024-12-16] MEDS: NICOTINE 14 MG/24 HOURS TOPICAL PATCH TD SCH (16:54)
[2024-12-16] MEDS: IBUPROFEN 600 MG TABLET (FP) PO PRN (18:02)
[2024-12-16] MEDS: CycloBENZAprine HCL 5 MG TABLET PO SCH (22:52)
[2024-12-16] MEDS: THIAMINE 100 MG TABLET PO SCH (22:52)
[2024-12-16] MEDS: MELATONIN 5 MG TABLETS PO SCH (22:52)
[2024-12-16] MEDS: GABAPENTIN 400 MG CAPSULE PO SCH (22:52)
[2024-12-16] MEDS: HYDROCORTISONE 0.5% TOPICAL CREAM 30 GM TUBE TP PRN (22:52)
[2024-12-17 08:49] VITALS: RESP 16
[2024-12-17] MEDS: SENNOSIDES 8.6MG TABLET (FP) PO SCH (09:32)
[2024-12-17 12:53] LABS: HCV DIAGNOSTIC IN-HOUSE W/RFLX NON-REACTIVE (NONREACTIVE); HIV INTERPRETATION NEGATIVE (NEGATIVE)
[2024-12-17] MEDS: METHOCARBAMOL 750 MG TABLET PO SCH (14:55)
[2024-12-17] MEDS: ARIPiprazole 5 MG TABLET PO SCH (15:30)
[2024-12-17] MEDS ORDERED: BUPRENORPHINE HCL 150 MCG, BUPRENORPHINE HCL 75 MCG BC PRN (16:24)
[2024-12-17] MEDS: BUPRENORPHINE HCL 150 MCG, BUPRENORPHINE HCL 75 MCG BC ONE (17:17)
[2024-12-17] MEDS: SUVOREXANT 10 MG TABLET PO PRN (21:58)
[2024-12-17] MEDS: ONDANSETRON *ODT* 4 MG TABLET SL PRN (21:58)
[2024-12-18] MEDS ORDERED: BUPRENORPHINE HCL 150 MCG, BUPRENORPHINE HCL 75 MCG BC PRN
[2024-12-18] MEDS: ACETAMINOPHEN 325 MG TABLET (FP) PO PRN (01:38)
[2024-12-18] MEDS: BUPRENORPHINE HCL 150 MCG, BUPRENORPHINE HCL 75 MCG BC SCH (05:26)
[2024-12-18 06:02] VITALS: BP 128/80; PULSE 75; TEMP 98.6
[2024-12-19] MEDS ORDERED: BUPRENORPHINE/NALOXONE 2 MG/0.5 MG FILM PACKET SL ONE (06:00)
[2024-12-19] MEDS ORDERED: BUPRENORPHINE HCL 450 MCG FILM BC SCH (06:00)
[2024-12-20] MEDS ORDERED: BUPRENORPHINE/NALOXONE 4 MG/1 MG FILM PACKET SL SCH (06:00)
== END 2024-12-18 10:55 | disposition left against medical advice (07) | DRG 770 ==
LOC: YASAS 14:50 → Y3NR 15:56
PROVIDERS: ADMIT Psychiatry & Neurology Pain Medicine; ATTEND Psychiatry & Neurology Pain Medicine
PROC: HZ42ZZZ Group Counseling for Substance Abuse Treatment, Cognitive-Behavioral (ICD-10-PCS; principal; 2024-12-16)
DX: F11.20 Opioid dependence, uncomplicated (principal); F10.20 Alcohol dependence, uncomplicated; F14.10 Cocaine abuse, uncomplicated; F12.20 Cannabis dependence, uncomplicated; F17.210 Nicotine dependence, cigarettes, uncomplicated; F25.1 Schizoaffective disorder, depressive type; F31.9 Bipolar disorder, unspecified; F19.282 Other psychoactive substance dependence with psychoactive substance-induced sleep disorder; F19.280 Other psychoactive substance dependence with psychoactive substance-induced anxiety disorder; F13.24 Sedative, hypnotic or anxiolytic dependence with sedative, hypnotic or anxiolytic-induced mood disorder; F43.10 Post-traumatic stress disorder, unspecified; F41.9 Anxiety disorder, unspecified; I10 Essential (primary) hypertension; M16.0 Bilateral primary osteoarthritis of hip; M17.0 Bilateral primary osteoarthritis of knee; Z62.810 Personal history of physical and sexual abuse in childhood; Z99.89 Dependence on other enabling machines and devices
CPT/HCPCS: 36415; 86803; 87389; 87811; 93005; 93010; Q0162